=== PATIENT | female | born 1960 | race Caucasian/White ===

== ENCOUNTER 2016-12-06 20:30 | Outpatient (CLI) | payer MEDICAID | END 2016-12-06 20:31 | disposition home or self-care (01) | LOC: SLEEPLAB 20:30 | PROVIDERS: ATTEND Internal Medicine Critical Care Medicine | DX: G47.33 Obstructive sleep apnea (adult) (pediatric) (principal); J44.9 Chronic obstructive pulmonary disease, unspecified; I10 Essential (primary) hypertension; G47.10 Hypersomnia, unspecified; R06.83 Snoring | CPT/HCPCS: 95811 ==

== ENCOUNTER 2017-03-16 16:18 | Inpatient (IN) | payer MEDICAID, OTHER ==
[2017-03-16 16:54] LABS: Actual Bicarbonate (HCO3a) 27.2 mEq/L (22-26); Base Excess (BEa) 1.7 mEq/L (0 (+/-) 2.5); CO2 Tension 46.3 mmHg (35.0-45.0); Calcium, Ionized 1.2 mmol/L (1.12-1.30); Hematocrit-ABG 37.2 % (36.0-47.0); Hemoglobin (Hb) 11.6 g/dL (12.0-16.0); O2 Tension (PaO2) 69.5 mmHg (80.0-100.0); pH, Arterial 7.39 (7.35-7.45)
[2017-03-16] MEDS ORDERED: Water For Inject, Bacteriostat 30 ML ONE (16:58)
[2017-03-16] MEDS ORDERED: methylPREDNISolone Sod Succ/PF 125 MG/2 ML VIAL ONE (16:59)
[2017-03-16 17:07] LABS: #Basophils 0.1 thou/uL (0.0-0.2); #Lymphocytes 0.9 thou/uL (1.20-3.40); #Monocytes 0.7 thou/uL (0.11-0.59); #Neutrophils 7.6 thou/uL (1.40-6.50); %Basophils 0.9 % (0.0-1.0); %Eosinophils 0.3 % (0.0-10.0); %Lymphocytes 9.7 % (21.0-51.0); %Monocytes 7.9 % (0.0-10.0); %Neutrophils 81.1 % (42.0-75.0); Hemoglobin 12.7 g/dL (12.0-16.0); Mean Corpuscular Hemoglobin 29.2 pg (27.0-31.0); Mean Corpuscular Volume 91.3 fl (81.0-99.0); Mean Platelet Volume 7.6 fL (7.4-10.4); Platelet Count 155 thou/uL (130-400); RBC Distribution Width 15.6 % (11.5-14.5); Red Blood Cell (RBC) Count 4.35 mill/uL (4.20-5.40); White Blood Cell (WBC) Count 9.3 thou/uL (4.8-10.8)
[2017-03-16] MEDS ORDERED: Azithromycin 500 MG in Sodium Chloride 0.9% 250 ML 250 ML IVPB ONE (17:15)
[2017-03-16] MEDS ORDERED: cefTRIAXone\\ROCEPHIN 2 GM in Sodium Chloride 0.9% 100 ML IVPB ONE (17:15)
[2017-03-16 17:28] LABS: ALT (SGPT) 7 U/L (8-55); AST (SGOT) 14 U/L (5-34); Albumin 4.2 g/dL (3.5-5.0); Alkaline Phosphatase 104 U/L (40-150); Anion Gap 16 mmol/L (10-20); BUN (Urea Nitrogen) 14 mg/dL (9.8-20.1); Bilirubin, Total 0.9 mg/dL (0.2-1.2); Calc. Creatinine Clearance 0 mL/min (70-130); Calcium 9.8 mg/dL (7.8-10.44); Carbon Dioxide 27 mmol/L (22-29); Chloride 99 mmol/L (98-107); Estimated GFR-MDRD 55; Globulin 3.1 g/dL (2.4-3.5); Glucose 146 mg/dL (70-105); Magnesium 1.4 mg/dL (1.6-2.6); Potassium 3.8 mmol/L (3.5-5.1); Protein, Total 7.3 g/dL (6.0-8.3); Sodium 138 mmol/L (136-145)
[2017-03-16 17:29] LABS: Troponin I Less than 0.010 ng/mL (< 0.028)
[2017-03-16 17:54] LABS: ALV-art Gradient 126.725 (0-20); Analyzer IN Cardio ER; Puncture Site LRA
[2017-03-16] MEDS ORDERED: Mag-Al 1200 mg/1200 mg/30 ML UDCUP PO PRN (18:12)
[2017-03-16] MEDS ORDERED: Dextrose 5% in Water 1,000 ML IV PRN (18:12)
[2017-03-16] MEDS ORDERED: Dextrose 50% Abboject 50 ML SYRINGE SLOW IVP PRN (18:12)
[2017-03-16] MEDS ORDERED: Guaifenesin DM 100-10/5 ML UDCUP PO PRN (18:12)
[2017-03-16] MEDS ORDERED: Acetaminophen 325 MG TAB PO PRN (18:12)
[2017-03-16] MEDS ORDERED: Senokot 8.6 MG TAB PO PRN (18:12)
[2017-03-16] MEDS ORDERED: Benzonatate 100 MG CAP PO PRN (18:12)
[2017-03-16 18:26] LABS: Bilirubin Negative (Negative); Blood, Urine Large (Negative); Clarity CLOUDY (Clear); Glucose, Urine (Dipstick) Negative (Negative); Leukocyte Moderate (Negative); Nitrite Positive (Negative); Protein, Urine (Dipstick) 30 mg/dL (Neg-Trace); pH, Urine 5.5 (5.0-9.0)
[2017-03-16 18:28] LABS: Bacteria/HPF 4+ HPF (None Seen); RBC/HPF GREATER THAN 50-TNTC HPF (0-3); Squamous Epithelial 0-3 HPF (0-3); WBC/HPF 21-50 HPF (0-3); Yeast-AUWi Flag 13.8 (0-25.0)
[2017-03-16] MEDS ORDERED: Acetaminophen 650 MG Suppository ONE (18:37)
[2017-03-16 18:45] LABS: Pathc Cast-AUWi Flag 5.14 (0-2.49)
[2017-03-16 18:47] LABS: Hyaline Casts/LPF NONE SEEN LPF (0-3 Hyaline); Other Casts/LPF None Seen LPF (0-3 Hyaline)
--- NOTE | 2017-03-16 19:13 | HP ---
REASON FOR ADMISSION: Acute respiratory failure, acute chronic obstructive pulmonary disease exacerbation, mild congestive heart failure exacerbation. HISTORY OF PRESENTING ILLNESS: The patient gives history of having [employer] party in the outdoors. She was exposed to cold on this and from then on has not been feeling good. She continues to smoke 2 packs a day. She has had history of CABG done in 09/[address] [facility] and also has COPD with obstructive sleep apnea. The patient states on a good day she barely is able to do all her activities of daily living at home. She states she is disabled. Has been coughing with expectoration of yellow sputum. Does not complain of any chest pain, palpitations or PND. The patient is currently orthopneic. Her saturations were 50% on room air and had to be put on nonrebreather by EMS to bring her here. On arrival here, she was placed on BiPAP and currently the saturations are 92%. PAST MEDICAL AND SURGICAL HISTORY: History of CABG done in 2015, diabetes mellitus type 2, dyslipidemia, x2, obstructive sleep apnea on CPAP, hypertension, tobacco abuse, tonsillectomy. CURRENT MEDICATIONS: Takes Lipitor 20 mg p.o. daily, Lasix 40 mg p.o. daily, metformin 1 g p.o. twice daily, lisinopril 2.5 mg p.o. daily, gabapentin 600 mg p.o. daily, aspirin 81 mg p.o. daily, Ventolin and Dulera inhalers. ALLERGIES: CODEINE. PERSONAL HISTORY: Smokes 2 packs a day. Does not abuse alcohol or drugs. Lives with her ex-. FAMILY HISTORY: The patient is adopted. She does not know much about her biological parents, although she knows that they are . CODE STATUS: FULL. Power of ip technology transactions attorney is her daughter, Ms. Krueger. REVIEW OF SYSTEMS: The following complete review of systems was negative, unless otherwise mentioned in the HPI or below: Constitutional: Weight loss or gain, ability to conduct usual activities. Skin: Rash, itching. Eyes: Double vision, pain. ENT/Mouth: Nose bleeding, neck stiffness, pain, tenderness. Cardiovascular: Palpitations, dyspnea on exertion, orthopnea. Respiratory: Shortness of breath, wheezing, cough, hemoptysis, fever or night sweats. Gastrointestinal: Poor appetite, abdominal pain, heartburn, nausea, vomiting, constipation, or diarrhea. Genitourinary: Urgency, frequency, dysuria, nocturia. Musculoskeletal: Pain, swelling. Neurologic/Psychiatric: Anxiety, depression. Allergy/Immunologic: Skin rash, bleeding tendency. PHYSICAL EXAMINATION: GENERAL: The patient is a 56-year-old female who is currently on BiPAP and is feeling comfortable on it. VITAL SIGNS: Blood pressure 110/62, pulse 130 per minute, respiratory rate 28 per minute, temperature 101.8 degrees Fahrenheit on arrival, saturating 94% on nonrebreather, 50% on room air and currently 92% on BiPAP. NECK: Supple. There is mild elevation in JVD. HEENT: Eyes, extraocular muscles intact. Pupils reacting to light. Oral cavity, mucous membranes are dry. No exudates, but there is congestion in the posterior pharyngeal wall. CARDIOVASCULAR SYSTEM: S1, S2 heard. Tachycardic, no murmur. RESPIRATORY SYSTEM: Air entry 1+ bilateral. Scattered wheezes plus bilateral. ABDOMEN: Soft, bowel sounds heard. No tenderness, rigidity or guarding. EXTREMITIES: No peripheral edema or calf tenderness. VASCULAR SYSTEM: Peripheral pulses 1+ bilateral. No ischemic ulcerations or gangrene. CENTRAL NERVOUS SYSTEM: No gross focal deficits seen. The patient is alert, awake, oriented well. PSYCHIATRIC: The patient's mood is euthymic. No hallucinations or delusions. LABORATORY AND X-RAY FINDINGS: Influenza nasal swab A and B antigens are negative. Chest x-ray by my review shows pulmonary vascular congestion with cardiomegaly. BNP is 214. First set of cardiac enzymes are negative. Glucose 146. BUN 14, creatinine 1.0, lactic acid is 2.9. Liver enzymes are within normal limits. Albumin is 4.2, sodium 138. ABG done shows a pH of 7.39, PCO2 of 46, pO2 of 69. White count 9, H and H 12 and 39, platelet count 155 with 81 % neutrophils, MCV is 91. CLINICAL IMPRESSION AND PLAN: The patient will be admitted to [facility] for acute respiratory failure, acute chronic obstructive pulmonary disease exacerbation, mild congestive heart failure exacerbation. She is currently saturating 92%-93 % on BiPAP and will continue the same. Her ABG looks better than her clinical situation. She has gotten a dose of Zithromax and ceftriaxone in the ER. She will be on Solu-Medrol 40 mg IV q.6 hourly along with empiric Levaquin and DuoNeb. We will consult Pulmonology, Dr. Gonzalez who is concrete layer. We will also continue her on Lasix 40 mg twice daily. Echo with 2D Doppler will be obtained for left ventricular function. The patient has known history of coronary artery bypass grafting, chronic obstructive pulmonary disease and obstructive sleep apnea and continues to smoke almost 2 packs a day. She is also functionally very limited at baseline. We will continue her on aspirin, Lipitor , metformin, and K-Dur as before. We will continue to closely monitor her for any hemodynamic compromise. TAZ
--- NOTE | 2017-03-16 19:18 | RAD ---
AP CHEST: Indication: Difficulty breathing. Comparison: 08-23-16, 11-25-16 FINDINGS: There is stable cardiomegaly. Midline sternotomy changes are similar. The fractured sternotomy wire o n the inferior aspect of the sternal body is stable. Pulmonary vasculature are within normal limits. No airspace consolidation, pleural effusion, or pneumothorax is evident. No acute osseous abnormality is evident. IMPRESSION: No acute cardiopulmonary abnormality. POS: [facility]
[2017-03-16 22:05] LABS: Actual Bicarbonate (HCO3a) 26.8 mEq/L (22-26); Base Excess (BEa) 0.2 mEq/L (0 (+/-) 2.5); CO2 Tension 52.4 mmHg (35.0-45.0); Calcium, Ionized 1.2 mmol/L (1.12-1.30); Hematocrit-ABG 34.7 % (36.0-47.0); Hemoglobin (Hb) 10.8 g/dL (12.0-16.0); O2 Tension (PaO2) 73.5 mmHg (80.0-100.0); pH, Arterial 7.33 (7.35-7.45)
[2017-03-16 22:07] LABS: Analyzer IN Cardio ER; Puncture Site RR
[2017-03-16 22:16] LABS: Lactic Acid 1.1 mmol/L (0.5-2.2)
[2017-03-16] MEDS: Atorvastatin Calcium 20 MG TAB PO SCH (23:27)
[2017-03-16] MEDS: Furosemide 40 MG TAB PO SCH (23:28)
[2017-03-16 23:44] VITALS: BMI 36.8
[2017-03-17] MEDS: HumaLOG 300 UNITS/3 ML VIAL SC PRN ×2 (05:31→12:03)
[2017-03-17 05:54] LABS: #Lymphocytes 0.7 thou/uL (1.20-3.40); #Monocytes 0.2 thou/uL (0.11-0.59); #Neutrophils 6.7 thou/uL (1.40-6.50); %Basophils 0.1 % (0.0-1.0); %Lymphocytes 9.6 % (21.0-51.0); %Monocytes 2.8 % (0.0-10.0); %Neutrophils 87.5 % (42.0-75.0); Hemoglobin 12.3 g/dL (12.0-16.0); Mean Corpuscular HGB CONC 31.5 g/dL (32.0-36.0); Mean Corpuscular Hemoglobin 29.1 pg (27.0-31.0); Mean Corpuscular Volume 92.4 fl (81.0-99.0); Mean Platelet Volume 8.1 fL (7.4-10.4); Platelet Count 134 thou/uL (130-400); RBC Distribution Width 15.5 % (11.5-14.5); Red Blood Cell (RBC) Count 4.24 mill/uL (4.20-5.40); White Blood Cell (WBC) Count 7.7 thou/uL (4.8-10.8)
[2017-03-17 06:13] LABS: Anion Gap 13 mmol/L (10-20); BUN (Urea Nitrogen) 18 mg/dL (9.8-20.1); Calc. Creatinine Clearance 102 mL/min (70-130); Calcium 9.4 mg/dL (7.8-10.44); Carbon Dioxide 28 mmol/L (22-29); Chloride 102 mmol/L (98-107); Estimated GFR-MDRD 62; Glucose 187 mg/dL (70-105); Potassium 4.2 mmol/L (3.5-5.1); Sodium 139 mmol/L (136-145)
[2017-03-17] MEDS: Enoxaparin Sodium 40 MG/0.4 ML SYRINGE SC SCH (08:36)
[2017-03-17] MEDS: metFORMIN 500 MG TAB PO SCH ×2 (08:36→17:12)
[2017-03-17] MEDS: Aspirin 81 mg Enteric Coated Tablet PO SCH (08:36)
[2017-03-17] MEDS: Furosemide 40 MG TAB PO SCH ×2 (08:37→20:34)
[2017-03-17] MEDS: Potassium Chloride 20 MEQ TAB PO SCH (08:37)
[2017-03-17] MEDS: Lisinopril 2.5 MG TAB PO SCH (08:37)
[2017-03-17] MEDS ORDERED: predniSONE 20 MG TAB PO SCH (12:15)
--- NOTE | 2017-03-17 12:50 | PDOC.PN ---
- Subjective Encounter Start Date: 03/17/17 Encounter Start Time: 11:40 Subjective: no sob, feels better - Objective Resuscitation Status: Resuscitation Status FULL:Full Resuscitation MAR Reviewed: Yes Vital Signs & Weight: Vital Signs (12 hours) Temp Pulse Resp BP Pulse Ox 03/17/17 12:39 97.6 F 94 22 H 100/55 L 100 03/17/17 08:37 92 03/17/17 08:33 98 03/17/17 08:04 92 24 H 99 03/17/17 08:00 97.4 F L 92 20 105/63 100 03/17/17 04:00 98.0 F 94 27 H 96/55 L 97 03/17/17 02:00 104 H 34 H 94/53 L 99 Weight Weight 208 lb 1 oz I&O: 03/16/17 03/17/17 03/18/17 06:59 06:59 06:59 Intake Total 2310 Output Total 800 Balance 1510 Result Diagrams: 03/17/17 04:38 03/17/17 04:38 Additional Labs: Accuchecks 03/17/17 03/17/17 11:29 05:31 POC Glucose 170 H 183 H Phys Exam - Physical Examination HEENT: PERRLA, moist MMs Neck: no JVD, supple Respiratory: no wheezing, no rales Cardiovascular: RRR, no significant murmur Gastrointestinal: soft, non-tender, positive bowel sounds Musculoskeletal: no edema, pulses present Neurological: non-focal, moves all 4 limbs Psychiatric: A&O x 3 Dx/Plan (1) Acute respiratory failure with hypoxia and hypercapnia Code(s): J96.01 - ACUTE RESPIRATORY FAILURE WITH HYPOXIA; J96.02 - ACUTE RESPIRATORY FAILURE WITH HYPERCAPNIA Status: Resolved (2) CAD (coronary artery disease) Code(s): I25.10 - ATHSCL HEART DISEASE OF [place] CORONARY ARTERY W/O ANG PCTRS Status: Chronic Qualifiers: Coronary Disease-Associated Artery/Lesion type: bypass graft [place] vs. transplanted heart: [place] heart Associated angina: without angina Qualified Code(s): I25.810 - Atherosclerosis of coronary artery bypass graft(s) without angina pectoris (3) DM2 (diabetes mellitus, type 2) Status: Chronic Qualifiers: Diabetes mellitus complication status: with unspecified complications Diabetes mellitus intermediate manager insulin use: without intermediate manager use Qualified Code( s): E11.8 - Type 2 diabetes mellitus with unspecified complications (4) HTN (hypertension) Code(s): I10 - ESSENTIAL (PRIMARY) HYPERTENSION Status: Chronic Qualifiers: Hypertension type: essential hypertension (5) Acute exacerbation of chronic obstructive pulmonary disease (COPD) Code(s): J44.1 - CHRONIC OBSTRUCTIVE PULMONARY DISEASE W (ACUTE) EXACERBATION Status: Acute (6) TATIANA (obstructive sleep apnea) Code(s): G47.33 - OBSTRUCTIVE SLEEP APNEA (ADULT) (PEDIATRIC) Status: Chronic Comment: CPAP hs - Plan is off bipap, uses cpap at night -: nebs, lasix, steroids, empiric levaquin -: tx to med floor -: counselled reg smoking cessation -: continue asp, lisinopril and lipitor * . Review of Systems - Medications/Allergies Allergies/Adverse Reactions: Allergies Allergy/AdvReac Type Severity Reaction Status Date / Time codeine Allergy Verified 03/16/17 22:54 Medications: Current Medications Acetaminophen (Tylenol) 650 mg PO Q4H PRN PRN Reason: Headache/Fever or Pain Al Hydroxide/Mg Hydroxide (Maalox) 30 ml PO Q6H PRN PRN Reason: Heartburn or Indigestion Albuterol/Ipratropium (Duoneb) 3 ml NEB [id number] [facility] Last Admin: 03/17/17 08:04 Dose: 3 ml Aspirin (Ecotrin) 81 mg PO DAILY [facility] Last Admin: 03/17/17 08:36 Dose: 81 mg Atorvastatin Calcium (Lipitor) 20 mg PO HS [facility] Last Admin: 03/16/17 23:27 Dose: 20 mg Benzonatate (Tessalon) 100 mg PO Q4H PRN PRN Reason: Cough Dextrose/Water (Dextrose 50%) 25 gm SLOW IVP PRN PRN PRN Reason: Hypoglycemia Enoxaparin Sodium (Lovenox) 40 mg SC 0900 [facility] Last Admin: 03/17/17 08:36 Dose: 40 mg Furosemide (Lasix) 40 mg PO BID [facility] Last Admin: 03/17/17 08:37 Dose: 40 mg Glucagon (Glucagon) 1 mg IM PRN PRN PRN Reason: Hypoglycemia Guaifenesin/Dextromethorphan (Robitussin Dm) 15 ml PO Q4H PRN PRN Reason: Cough Dextrose/Water (D5w) 1,000 mls @ 0 mls/hr IV .Q0M PRN; As Directed PRN Reason: Hypoglycemia Levofloxacin 750 mg/ Device 150 mls @ 100 mls/hr IVPB Q24HR [facility] Last Admin: 03/16/17 23:27 Dose: 150 mls Insulin Human Lispro (Humalog) 0 units SC .MODERATE SLIDING SC PRN PRN Reason: Moderate Correctional Scale Last Admin: 03/17/17 12:03 Dose: 2 unit Lisinopril (Zestril) 2.5 mg PO DAILY [facility] Last Admin: 03/17/17 08:37 Dose: 2.5 mg Metformin HCl (Glucophage) 1,000 mg PO BID-WM [facility] Last Admin: 03/17/17 08:36 Dose: 1,000 mg Potassium Chloride (K-Dur) 20 meq PO DAILY [facility] Last Admin: 03/17/17 08:37 Dose: 20 meq Prednisone (Prednisone) 10 mg PO NOW [facility] Stop: 03/17/17 14:15 Prednisone (Prednisone) 10 mg PO QAM-[facility] Senna (Senokot) 2 tab PO HSPRN PRN PRN Reason: Constipation
[2017-03-17] MEDS: Gabapentin 300 MG CAP PO SCH (20:34)
[2017-03-17] MEDS: Atorvastatin Calcium 20 MG TAB PO SCH (20:34)
[2017-03-17] MEDS: Benzonatate 100 MG CAP PO SCH (20:34)
[2017-03-18] MEDS: Potassium Chloride 20 MEQ TAB PO SCH (08:12)
[2017-03-18] MEDS: Furosemide 40 MG TAB PO SCH ×2 (08:12→20:05)
[2017-03-18] MEDS: Enoxaparin Sodium 40 MG/0.4 ML SYRINGE SC SCH (08:12)
[2017-03-18] MEDS: Aspirin 81 mg Enteric Coated Tablet PO SCH (08:13)
[2017-03-18] MEDS: Gabapentin 300 MG CAP PO SCH ×2 (08:13→20:05)
[2017-03-18] MEDS: predniSONE 20 MG TAB PO SCH (08:13)
[2017-03-18] MEDS: metFORMIN 500 MG TAB PO SCH ×2 (08:13→16:32)
[2017-03-18] MEDS: Lisinopril 2.5 MG TAB PO SCH (08:15)
--- NOTE | 2017-03-18 15:10 | PQF ---
DATE: 03-18-17 ATTN: DR. LUIGI RUBALCAVA Please exercise your independent, professional judgment in responding to the clarification form. Clinical indicators are provided on the bottom of this form for your review Please check appropriate box(s): [ ] UTI [ ] Contaminated urine specimen without UTI [ ] Other diagnosis [ ] Unable to determine In addition, please specify: Present on Admission (POA): [ ] Yes [ ] No [ ] Unable to determine For continuity of documentation, please document condition throughout progress notes and discharge summary. Thank You. CLINICAL INDICATORS - SIGNS / SYMPTOMS / LABS ER DIAGNOSIS: SEPSIS, RESPIRATORY FAILURE WITH HYPOXIA, UTI URINE 03-16-17: URINE PROTEIN 30 H URINE BLOOD LARGE H URINE NITRITE POSITIVE H UR LEUKOCYTE ESTERASE MODERATE H URINE RBC GREATER THAN 50-TNCT H URINE WBC 21-50 H URINE BACTERIA 4+ H RISK FACTORS: H&P: HX OF CABG, COPD, DM, HTN TREATMENT: (03-16-17) LEVAQUIN (ER) IVF, AZITHROMYCIN, ROCEPHIN (This form is maintained as a part of the permanent medical record) 2014 [employer] All Rights Reserved [email or web address] Office: [phone] [facility] H[facility]PITALSerj[facility]
[2017-03-18] MEDS: Benzonatate 100 MG CAP PO SCH (20:06)
[2017-03-18] MEDS: Atorvastatin Calcium 20 MG TAB PO SCH (20:06)
--- NOTE | 2017-03-18 21:25 | PDOC.PN ---
- Subjective Encounter Start Date: 03/18/17 Encounter Start Time: 12:30 Patient seen and examined. SOB +. No overnight events - Objective Resuscitation Status: Resuscitation Status FULL:Full Resuscitation MAR Reviewed: Yes Vital Signs & Weight: Vital Signs (12 hours) Temp Pulse Resp BP BP Pulse Ox 03/18/17 19:51 103 H 22 H 93 L 03/18/17 15:30 98.2 F 104 H 20 93 L 03/18/17 14:45 98.2 F 104 H 20 114/65 93 L 03/18/17 12:00 97.7 F 106 H 20 108/57 L 96 Weight Weight 206 lb 8 oz I&O: 03/17/17 03/18/17 03/19/17 06:59 06:59 06:59 Intake Total 2310 1790 480 Output Total 800 2050 Balance 1510 -260 480 Result Diagrams: 03/19/17 10:24 03/17/17 04:38 Additional Labs: Accuchecks 03/18/17 03/18/17 03/18/17 20:03 15:53 11:39 POC Glucose 111 H 139 H 121 H 03/18/17 06:24 POC Glucose 116 H EKG Reviewed by me: Yes (Tele SR) Phys Exam - Physical Examination Constitutional: NAD Respiratory: no rales Scat wheezing/rhonchi Cardiovascular: RRR Gastrointestinal: soft, non-tender, positive bowel sounds Neurological: moves all 4 limbs Dx/Plan - Plan respiratory therapy, DVT proph w/lovenox, DVT proph w/SCDs IMPRESSION: 1. Acute hypoxic/hypercapnic resp failure/COPD exacerbation 2. Sepsis due to Acute Bronchitis/UTI 3. UTI - Enterobacter 4. Obesity BMI 36 5. DM2/HTN/CAD/TATIANA/Tobacco dep/Obesity hypoventilation PLAN: * Cont Nebs/Atbx/low dose steroids * Cont current meds as below * Pulm following * Cont to monitor * AM labs Microbiology 03/16/17 17:45 Urine Straight Catheter Urine Culture - Final Enterobacter cloacae complex Review of Systems - Review of Systems Cardiovascular: negative: chest pain, palpitations, orthopnea, paroxysmal nocturnal dyspnea, edema, light headedness Gastrointestinal: negative: Nausea, Vomiting, Abdominal Pain, Diarrhea, Constipation, Melena, Hematochezia - Medications/Allergies Allergies/Adverse Reactions: Allergies Allergy/AdvReac Type Severity Reaction Status Date / Time codeine Allergy Verified 03/16/17 22:54 Medications: Current Medications Acetaminophen (Tylenol) 650 mg PO Q4H PRN PRN Reason: Headache/Fever or Pain Al Hydroxide/Mg Hydroxide (Maalox) 30 ml PO Q6H PRN PRN Reason: Heartburn or Indigestion Albuterol/Ipratropium (Duoneb) 3 ml NEB [id number] [facility] Last Admin: 03/18/17 19:51 Dose: 3 ml Aspirin (Ecotrin) 81 mg PO DAILY [facility] Last Admin: 03/18/17 08:13 Dose: 81 mg Atorvastatin Calcium (Lipitor) 20 mg PO HS [facility] Last Admin: 03/18/17 20:06 Dose: 20 mg Benzonatate (Tessalon) 100 mg PO Q4H PRN PRN Reason: Cough Benzonatate (Tessalon) 100 mg PO HS [facility] Last Admin: 03/18/17 20:06 Dose: 100 mg Dextrose/Water (Dextrose 50%) 25 gm SLOW IVP PRN PRN PRN Reason: Hypoglycemia Enoxaparin Sodium (Lovenox) 40 mg SC 0900 [facility] Last Admin: 03/18/17 08:12 Dose: 40 mg Furosemide (Lasix) 40 mg PO BID [facility] Last Admin: 03/18/17 20:05 Dose: 40 mg Gabapentin (Neurontin) 600 mg PO BID [facility] Last Admin: 03/18/17 20:05 Dose: 600 mg Glucagon (Glucagon) 1 mg IM PRN PRN PRN Reason: Hypoglycemia Guaifenesin/Dextromethorphan (Robitussin Dm) 15 ml PO Q4H PRN PRN Reason: Cough Dextrose/Water (D5w) 1,000 mls @ 0 mls/hr IV .Q0M PRN; As Directed PRN Reason: Hypoglycemia Levofloxacin 750 mg/ Device 150 mls @ 100 mls/hr IVPB Q24HR [facility] Last Admin: 03/18/17 20:05 Dose: 150 mls Insulin Human Lispro (Humalog) 0 units SC .MODERATE SLIDING SC PRN PRN Reason: Moderate Correctional Scale Last Admin: 03/17/17 12:03 Dose: 2 unit Lisinopril (Zestril) 2.5 mg PO DAILY [facility] Last Admin: 03/18/17 08:15 Dose: Not Given Metformin HCl (Glucophage) 1,000 mg PO BID-[facility] Last Admin: 03/18/17 16:32 Dose: 1,000 mg Potassium Chloride (K-Dur) 20 meq PO DAILY [facility] Last Admin: 03/18/17 08:12 Dose: 20 meq Prednisone (Prednisone) 10 mg PO QAM-[facility] Last Admin: 03/18/17 08:13 Dose: 10 mg Senna (Senokot) 2 tab PO HSPRN PRN PRN Reason: Constipation
[2017-03-19] MEDS: Lisinopril 2.5 MG TAB PO SCH (08:56)
[2017-03-19] MEDS: Gabapentin 300 MG CAP PO SCH ×2 (08:56→20:59)
[2017-03-19] MEDS: predniSONE 20 MG TAB PO SCH (08:57)
[2017-03-19] MEDS: metFORMIN 500 MG TAB PO SCH ×2 (08:58→17:23)
[2017-03-19] MEDS: Aspirin 81 mg Enteric Coated Tablet PO SCH (08:58)
[2017-03-19] MEDS: Furosemide 40 MG TAB PO SCH ×2 (08:58→17:23)
[2017-03-19] MEDS: Potassium Chloride 20 MEQ TAB PO SCH (08:58)
[2017-03-19] MEDS: Enoxaparin Sodium 40 MG/0.4 ML SYRINGE SC SCH (09:01)
[2017-03-19 10:36] LABS: #Lymphocytes 1.3 thou/uL (1.20-3.40); #Monocytes 0.5 thou/uL (0.11-0.59); #Neutrophils 4.8 thou/uL (1.40-6.50); %Basophils 0.1 % (0.0-1.0); %Eosinophils 0.5 % (0.0-10.0); %Lymphocytes 19.1 % (21.0-51.0); %Neutrophils 72.3 % (42.0-75.0); Hemoglobin 11.7 g/dL (12.0-16.0); Mean Corpuscular HGB CONC 32.1 g/dL (32.0-36.0); Mean Corpuscular Hemoglobin 29.4 pg (27.0-31.0); Mean Corpuscular Volume 91.8 fl (81.0-99.0); Platelet Count 137 thou/uL (130-400); RBC Distribution Width 15.1 % (11.5-14.5); Red Blood Cell (RBC) Count 3.97 mill/uL (4.20-5.40); White Blood Cell (WBC) Count 6.7 thou/uL (4.8-10.8)
[2017-03-19 11:01] LABS: ALT (SGPT) 8 U/L (8-55); AST (SGOT) 13 U/L (5-34); Albumin 3.7 g/dL (3.5-5.0); Alkaline Phosphatase 76 U/L (40-150); Anion Gap 16 mmol/L (10-20); BUN (Urea Nitrogen) 23 mg/dL (9.8-20.1); Bilirubin, Total 0.5 mg/dL (0.2-1.2); Calc. Creatinine Clearance 101 mL/min (70-130); Calcium 9.4 mg/dL (7.8-10.44); Carbon Dioxide 25 mmol/L (22-29); Chloride 104 mmol/L (98-107); Estimated GFR-MDRD 62; Globulin 2.8 g/dL (2.4-3.5); Glucose 97 mg/dL (70-105); Magnesium 1.8 mg/dL (1.6-2.6); Phosphorus 2.4 mg/dL (2.3-4.7); Potassium 4.7 mmol/L (3.5-5.1); Protein, Total 6.5 g/dL (6.0-8.3); Sodium 140 mmol/L (136-145)
--- NOTE | 2017-03-19 17:35 | PDOC.PN ---
- Subjective Encounter Start Date: 03/19/17 Encounter Start Time: 15:30 Patient seen and examined. SOB improving. No overnight events - Objective Resuscitation Status: Resuscitation Status FULL:Full Resuscitation MAR Reviewed: Yes Vital Signs & Weight: Vital Signs (12 hours) Temp Pulse Resp BP Pulse Ox 03/19/17 12:12 98.4 F 107 H 20 112/73 92 L 03/19/17 08:00 97.7 F 105 H 20 119/69 93 L 03/19/17 07:22 99 24 H 96 Weight Weight 206 lb 8 oz I&O: 03/18/17 03/19/17 03/20/17 06:59 06:59 06:59 Intake Total 1790 480 Output Total 2050 Balance -260 480 Result Diagrams: 03/19/17 10:24 03/19/17 10:24 Additional Labs: Accuchecks 03/19/17 03/19/17 03/19/17 16:17 11:29 04:18 POC Glucose 137 H 129 H 96 03/18/17 20:03 POC Glucose 111 H Phys Exam - Physical Examination Constitutional: NAD Respiratory: no wheezing, no rales, no rhonchi Cardiovascular: RRR, no rub Gastrointestinal: soft, non-tender, positive bowel sounds Neurological: moves all 4 limbs Dx/Plan - Plan DVT proph w/SCDs IMPRESSION: 1. Acute hypoxic/hypercapnic resp failure/COPD exacerbation 2. Sepsis due to Acute Bronchitis/UTI 3. UTI - Enterobacter 4. Obesity BMI 36/DM2/HTN/CAD/TATIANA/Tobacco dep/Obesity hypoventilation PLAN: * Pulm following * Cont current meds as below * Cont Nebs/Atbx/low dose steroids * DC PO Potassium chloride * Cont to monitor * DC Lovenox per patient request Review of Systems - Review of Systems Cardiovascular: negative: chest pain, palpitations, orthopnea, paroxysmal nocturnal dyspnea, edema, light headedness Gastrointestinal: negative: Nausea, Vomiting, Abdominal Pain, Diarrhea, Constipation, Melena, Hematochezia - Medications/Allergies Allergies/Adverse Reactions: Allergies Allergy/AdvReac Type Severity Reaction Status Date / Time codeine Allergy Verified 03/16/17 22:54 Medications: Current Medications Acetaminophen (Tylenol) 650 mg PO Q4H PRN PRN Reason: Headache/Fever or Pain Al Hydroxide/Mg Hydroxide (Maalox) 30 ml PO Q6H PRN PRN Reason: Heartburn or Indigestion Albuterol/Ipratropium (Duoneb) 3 ml NEB [id number] [facility] Last Admin: 03/19/17 16:30 Dose: Not Given Aspirin (Ecotrin) 81 mg PO DAILY [facility] Last Admin: 03/19/17 08:58 Dose: 81 mg Atorvastatin Calcium (Lipitor) 20 mg PO HS [facility] Last Admin: 03/18/17 20:06 Dose: 20 mg Benzonatate (Tessalon) 100 mg PO Q4H PRN PRN Reason: Cough Benzonatate (Tessalon) 100 mg PO HS [facility] Last Admin: 03/18/17 20:06 Dose: 100 mg Dextrose/Water (Dextrose 50%) 25 gm SLOW IVP PRN PRN PRN Reason: Hypoglycemia Furosemide (Lasix) 40 mg PO 0600,1400 [facility] Last Admin: 03/19/17 17:23 Dose: Not Given Gabapentin (Neurontin) 600 mg PO BID [facility] Last Admin: 03/19/17 08:56 Dose: 600 mg Glucagon (Glucagon) 1 mg IM PRN PRN PRN Reason: Hypoglycemia Guaifenesin/Dextromethorphan (Robitussin Dm) 15 ml PO Q4H PRN PRN Reason: Cough Dextrose/Water (D5w) 1,000 mls @ 0 mls/hr IV .Q0M PRN; As Directed PRN Reason: Hypoglycemia Levofloxacin 750 mg/ Device 150 mls @ 100 mls/hr IVPB Q24HR [facility] Last Admin: 03/18/17 20:05 Dose: 150 mls Insulin Human Lispro (Humalog) 0 units SC .MODERATE SLIDING SC PRN PRN Reason: Moderate Correctional Scale Last Admin: 03/17/17 12:03 Dose: 2 unit Lisinopril (Zestril) 2.5 mg PO DAILY [facility] Last Admin: 03/19/17 08:56 Dose: 2.5 mg Metformin HCl (Glucophage) 1,000 mg PO BID-[facility] Last Admin: 03/19/17 17:23 Dose: 1,000 mg Potassium Chloride (K-Dur) 20 meq PO DAILY [facility] Last Admin: 03/19/17 08:58 Dose: 20 meq Prednisone (Prednisone) 10 mg PO QAM-[facility] Last Admin: 03/19/17 08:57 Dose: 10 mg Senna (Senokot) 2 tab PO HSPRN PRN PRN Reason: Constipation
[2017-03-19] MEDS ORDERED: predniSONE 20 MG TAB PO SCH (20:57)
[2017-03-19] MEDS: Atorvastatin Calcium 20 MG TAB PO SCH (20:59)
[2017-03-19] MEDS: Benzonatate 100 MG CAP PO SCH (20:59)
--- NOTE | 2017-03-19 22:04 | CON ---
DATE OF CONSULTATION: 03/19/2017 HISTORY OF PRESENT ILLNESS: Ms. Haas is a very pleasant 56-year-old female that I followed up for chronic obstructive pulmonary disease. She presented on 03/16 with complaints of shortness of breath. I was consulted today the 4th, to stacy romano her. She also has sleep apnea. PAST MEDICAL HISTORY: Remarkable for: 1. Ongoing tobacco use up to over a pack a day. 2. History of coronary artery bypass grafting, last summer. 3. History of sleep apnea. 4. History of diabetes. 5. History of two C-sections. 6. History of lipid disorder. 7. History of tonsillectomy. 8. History of hypertension. MEDICATIONS PRIOR TO ADMISSION: Lipitor, Lasix, metformin, lisinopril, gabapentin, aspirin and Duler a. She takes p.r.n. Ventolin. SOCIAL HISTORY: She is still smoking as mentioned. She does not drink. She does not use drugs. ALLERGIES: She reports allergies to CODEINE. FAMILY HISTORY: There is no known family history since she is adopted. REVIEW OF SYSTEMS: Otherwise 10-point negative. Her only complaints are cough, chest congestion. S ays she is finally starting to feel little better. PHYSICAL EXAMINATION: VITAL SIGNS: She is afebrile, heart rate is 92, respiratory rate is 20, oximetry is 94% on 4 liters and blood pressure 105/66. HEAD AND NECK: Unremarkable. She has no cervical lymphadenopathy. Carotids are symmetrical. LUNGS: Remarkable for faint wheezes. HEART: Regular rhythm. No S3. ABDOMEN: Soft and nontender. EXTREMITIES: Without clubbing, cyanosis or edema. LABORATORY AND IMAGING DATA: Chest radiograph 3 days ago showed cardiomegaly. No pleural effusions or pulmonary edema was seen. White count 6.7, hemoglobin 11.7 and platelets 137,000. Sodium 140, potassium 4.7, chloride 104, bicarb 25, BUN 23 and creatinine 0.94. IMPRESSION: 1. Chronic obstructive pulmonary disease exacerbation with bronchitis. 2. History of coronary artery disease, followed by Cardiology. I believe she was supposed to have a cardiology appointment this week. Cardiology might be notified of her presence in the hospital, so that they can see her since another clinics are fairly full and if she miss that appointment, it may be several months before she gets back in. I reviewed her medications. I would continue with her Lovenox and Criselda Mcadams. I am not sure if she needs Lasix twice a day at this point. She might do well with just once a day Lasix. Her antim icrobial therapy is now p.o. She probably would benefit from more than just 10 mg of prednisone a da y given that this is predominantly a chronic obstructive pulmonary disease exacerbation. I increased her prednisone to 40 mg a day. I will be happy to follow with the other physicians caring for. This is a 50-minute consult, greater than 50% of the time was spent on the unit reviewing records con ferring with staff and reviewing radiographs.
[2017-03-20 05:03] VITALS: TEMP 98.1
[2017-03-20] MEDS: Furosemide 40 MG TAB PO SCH (05:26)
[2017-03-20] MEDS: metFORMIN 500 MG TAB PO SCH (08:13)
[2017-03-20] MEDS: Lisinopril 2.5 MG TAB PO SCH (08:15)
[2017-03-20] MEDS: Aspirin 81 mg Enteric Coated Tablet PO SCH (08:16)
[2017-03-20] MEDS: Gabapentin 300 MG CAP PO SCH (08:16)
[2017-03-20 09:25] VITALS: BP 106/65
--- NOTE | 2017-03-20 13:30 | DIS ---
DATE OF ADMISSION: 03/16/2017 DATE OF DISCHARGE: 03/20/2017 DISCHARGE DISPOSITION: Home. FOLLOWUP: 1. Follow up with primary care physician Dr. Eliane Islas in 1 week. 2. Follow up with primary senior analytical chemist, Dr. Ennis and primary admissions supervisor Dr. Aguilar as sched ed. ALLERGIES: The patient is allergic to CODEINE. INPATIENT COMB MACHINE OPERATOR: Pulmonary, Dr. Ennis. TESTS PENDING AT DISCHARGE: 2D echocardiogram. BRIEF HOSPITAL COURSE: Patient is a 56-year-old female with chronic respiratory failure on home oxyg en, COPD, and coronary artery disease who presented to the emergency room with shortness of breath an d wheezing. Please refer to the history and physical dated 03/16/2017 for further details. The patient was admitted to the hospital with the diagnosis of acute hypoxic and hypercapnic respirat ory failure. ABGs on admission showed pH 7.33 with pCO2 of 52.4 with pO2 of 73.5. A pO2 on previous ABGs showed 69.5. She showed good improvement with noninvasive positive pressure ventilation. She received steroids, antibiotics as well as low dose diuretics with good response. Patient was evaluat ed by Pulmonary, Dr. Ennis. She also underwent echocardiogram which was scheduled as outpatient. e will follow up with Dr. Aguilar next week for stress test. Plan of care was discussed with the p shawn. She stated understanding. Total time coordinating the discharge of this patient was 33 minutes. DISCHARGE MEDICATIONS: Aspirin 81 mg daily, Lipitor 20 mg at bedtime, Tessalon 100 mg daily, Lasix 4 0 mg daily, gabapentin 600 mg twice a day, Levaquin 500 mg daily, lisinopril 2.5 mg daily, metformin 1000 mg b.i.d., Dulera 200/5 two puffs b.i.d., prednisone taper, and albuterol inhaler as needed. DISCHARGE INSTRUCTIONS: Plan of care was discussed with the patient in detail. She stated rosannaan jerry. FINAL DIAGNOSES: 1. Acute hypoxic/hypercapnic respiratory failure secondary to chronic obstructive pulmonary disease exacerbation. 2. Sepsis secondary to acute bronchitis/enterobacter infection. 3. Obesity with body mass index 36. 4. Diabetes mellitus type 2. 5. Hypertension. 6. Coronary artery disease. 7. Obstructive sleep apnea with obesity hypoventilation syndrome. 8. Tobacco dependence.
--- NOTE | 2017-03-20 13:53 | PRG ---
DATE OF SERVICE: 03/20/2017 SUBJECTIVE: Alba Haas did well overnight. She states she wants to go home. She has oxygen ever ything she needs at the house. PHYSICAL EXAMINATION: VITAL SIGNS: She is afebrile, heart rate 95, blood pressure 98/57, respiratory rate 20, oximetry is 94% on 4 liters, blood pressure 106/65. LUNGS: Remarkable for distant breath sounds. HEART: Regular rhythm. ABDOMEN: Soft. IMPRESSION AND PLAN: Chronic obstructive pulmonary disease exacerbation, improved. In my opinion, s he is stable for discharge. She can follow up with me in 2-3 weeks. She should go home with slow st eroid taper, continue her antibiotics and nebulizer treatments and her other home meds.
== END 2017-03-20 12:23 | disposition home or self-care (01) | DRG 871 ==
LOC: ERS 16:18 → IMCU/EMU 17:45 → T4-A 03-18 14:28 → T4-B 03-18 14:46
PROVIDERS: ADMIT Internal Medicine; ATTEND Internal Medicine
PROC: 5A09357 Assistance with Respiratory Ventilation, Less than 24 Consecutive Hours, Continuous Positive Airway Pressure (ICD-10-PCS; principal; 2017-03-16)
DX: A41.89 Other specified sepsis (principal); J96.01 Acute respiratory failure with hypoxia; J96.02 Acute respiratory failure with hypercapnia; J44.1 Chronic obstructive pulmonary disease with (acute) exacerbation; E66.2 Morbid (severe) obesity with alveolar hypoventilation; J44.0 Chronic obstructive pulmonary disease with (acute) lower respiratory infection; N39.0 Urinary tract infection, site not specified; I25.810 Atherosclerosis of coronary artery bypass graft(s) without angina pectoris; I50.9 Heart failure, unspecified; E11.9 Type 2 diabetes mellitus without complications; B96.89 Other specified bacterial agents as the cause of diseases classified elsewhere; E78.5 Hyperlipidemia, unspecified; F17.210 Nicotine dependence, cigarettes, uncomplicated; Z95.1 Presence of aortocoronary bypass graft; G47.33 Obstructive sleep apnea (adult) (pediatric); Z88.5 Allergy status to narcotic agent; Z79.84 Long term (current) use of oral hypoglycemic drugs; Z79.82 Long term (current) use of aspirin; Z79.51 Long term (current) use of inhaled steroids; Z68.36 Body mass index [BMI] 36.0-36.9, adult; J20.8 Acute bronchitis due to other specified organisms; I25.2 Old myocardial infarction; F41.9 Anxiety disorder, unspecified; F32.9 Major depressive disorder, single episode, unspecified; I11.0 Hypertensive heart disease with heart failure
CPT/HCPCS: 36415; 36416; 51701; 71045; 80048; 80053; 81003; 81015; 82553; 82805; 83605; 83735; 83880; 84100; 84484; 85025; 87040; 87070; 87077; 87086; 87186; 87205; 93005; 93306; 93798; 94660; 96361; 96365; 96367; 96375; 99406; A4353; J0456; J0696; J1650; J1956; J2930; J7050; J7506; J7620

== ENCOUNTER 2017-08-31 18:38 | Inpatient (IN) | payer OTHER ==
[~2017-08-31 18:38] MED LIST: ISOVUE-370 76%-LOCM 1 ML ONE
[2017-08-31 19:12] LABS: #Eosinphils 0.2 thou/uL (0.0-0.7); #Lymphocytes 1.4 thou/uL (1.20-3.40); #Monocytes 0.6 thou/uL (0.11-0.59); %Basophils 0.1 % (0.0-1.0); %Eosinophils 2.1 % (0.0-10.0); %Lymphocytes 14.9 % (21.0-51.0); %Monocytes 6.4 % (0.0-10.0); %Neutrophils 76.5 % (42.0-75.0); Hemoglobin 10.7 g/dL (12.0-16.0); Mean Corpuscular HGB CONC 32.2 g/dL (32.0-36.0); Mean Corpuscular Hemoglobin 23.9 pg (27.0-31.0); Mean Platelet Volume 8.5 fL (7.4-10.4); Platelet Count 241 thou/uL (130-400); RBC Distribution Width 19.8 % (11.5-14.5); Red Blood Cell (RBC) Count 4.47 mill/uL (4.20-5.40); White Blood Cell (WBC) Count 9.2 thou/uL (4.8-10.8)
[2017-08-31 19:13] LABS: INR-International Normal Ratio 1.1; PTT 29.4 SEC (22.9-36.1); Prothrombin Time 14.7 SEC (12.0-14.7)
[2017-08-31] MEDS ORDERED: Furosemide 40 MG/4 ML VIAL ONE (19:18)
[2017-08-31 19:28] LABS: ALT (SGPT) Less than 7 U/L (8-55); AST (SGOT) 11 U/L (5-34); Alkaline Phosphatase 151 U/L (40-150); Anion Gap 19 mmol/L (10-20); BUN (Urea Nitrogen) 13 mg/dL (9.8-20.1); Bilirubin, Total 0.7 mg/dL (0.2-1.2); CK (CPK) 51 U/L (29-168); Calc. Creatinine Clearance 0 mL/min (70-130); Calcium 9.1 mg/dL (7.8-10.44); Carbon Dioxide 23 mmol/L (22-29); Chloride 101 mmol/L (98-107); Estimated GFR-MDRD 52; Globulin 2.9 g/dL (2.4-3.5); Glucose 123 mg/dL (70-105); Potassium 4.5 mmol/L (3.5-5.1); Protein, Total 6.9 g/dL (6.0-8.3); Sodium 138 mmol/L (136-145)
[2017-08-31 19:36] LABS: Anisocytosis SLIGHT = 6-15 cells (100X) (0-5/hpf); MDiff Complete? YES; Microcytosis SLIGHT = 6-15 cells (100X) (0-5/hpf); Ovalocytes SLIGHT = 2-5 cells (100X) (0-1/hpf); PLT Morphology Comment Appears Adequate; Polychromasia SLIGHT = 2-3 cells (100X) (0-2/hpf)
[2017-08-31 19:37] LABS: CKMB 0.7 ng/mL (0-6.6); Troponin I Less than 0.010 ng/mL (< 0.028)
[2017-08-31] MEDS ORDERED: Lidocaine 1% (PF) 30 ML VIAL ONE (20:12)
--- NOTE | 2017-08-31 20:53 | CT ---
CTA THORAX WITH CONTRAST CTA ABDOMEN WITH CONTRAST: DATE: 08/31/2017 TIME: 8:02 p.m. (Computed Tomographic Angiography, chest (noncoronary) with contrast material, and image post process ing) (Computed Tomographic Angiography, abdomen with contrast material, and image post processing) HISTORY: A 56-year-old female with dyspnea, back pain and chronic hypertension. Rule out aortic dissection. COMPARISON: Previous CT of the abdomen and pelvis of 08/23/2016 There are no prior chest CTs for comparison. TECHNIQUE: IV injection of iodinated contrast: Isovue. Arterial phase bolus chasing technique. Scan acquisition from top of top of aortic arch to iliac crests. 3D MIP reconstructions. FINDINGS: Atherosclerotic calcification of the abdominal aorta without aneurysm or dissection. No aneurysm or dissection of the thoracic aorta. There are several mildly enlarged mediastinal lymph nodes, both on the right and left. On the left, this involves the prevascular space, measuring on the order of 1 c m or slightly greater in size each. Subcarinal lymph nodes are also mildly to moderately enlarged. The trachea and the main bronchi are patent and clear. No pleural effusion. Mediastinal lipomatosis . Bilateral paracardial fat pads. Mild subsegmental atelectasis or scar at the lung bases, and also abutting the left and right cardiac borders. No consolidation or pulmonary edema. No pneumothorax. Sternotomy wires. Diffuse skin thickening of the right breast. Edema in the soft tissues surrounding the abdominal wall, circumferentially. A large volume of ascit es, greater than on the previous CT. Several small calcified gallstones within a nondistended gallbl adder. Hepatic margins appear nodular. The spleen is approximately 6 x 15 x 17.5 cm. No hydronephr osis. No adrenal mass. Multiple mildly enlarged mesenteric, retroperitoneal, and octavio hepatis lymp h nodes. No pancreatic mass or acute pancreatitis. No small bowel dilation. Calcification of the l eft main, the LAD, and the RCA. IMPRESSION: 1. No aortic dissection or aneurysm. 2. Large volume of ascites. 3. cirrhosis. 4. Mild splenomegaly. 5. Cholelithiasis. 6. Anasarca. 7. Coronary atherosclerosis. 8. Unilateral skin thickening of the right breast. Possibilities include right mastitis versus righ t breast inflammatory carcinoma. viola[] POS: AMAURY
[2017-08-31 20:55] LABS: Bilirubin Negative (Negative); Blood, Urine Negative (Negative); Clarity CLEAR (Clear); Glucose, Urine (Dipstick) Negative (Negative); Leukocyte Trace (Negative); Nitrite Negative (Negative); Protein, Urine (Dipstick) Negative (Neg-Trace); Specific Gravity, Urine 1.011 (1.002-1.036); Urobilinogen 0.2 mg/dL (0.2-1.0); pH, Urine 6.5 (5.0-9.0)
[2017-08-31 20:56] LABS: Bacteria/HPF None Seen HPF (None Seen); Hyaline Casts/LPF 0-3 HYALINE CAST LPF (0-3 Hyaline); Pathc Cast-AUWi Flag 0.43 (0-2.49); RBC/HPF 0-3 HPF (0-3); Squamous Epithelial 0-3 HPF (0-3); WBC/HPF 0-3 HPF (0-3)
--- NOTE | 2017-08-31 21:14 | RAD ---
RADIOGRAPH CHEST 1 VIEW: Date: 08/31/2017 Time: 7:03 p.m. HISTORY: A 56-year-old female with dyspnea and cough. COMPARISON: 03/16/2017 FINDINGS: Again noted are the bilaterally shaggy cardiac borders. This is probably due to bilateral paracardia l fat pads. This appears slightly more prominent now than on the prior study, but that could be due to technical issues. No consolidation. Sternotomy wires are again noted. No pneumothorax. No gita r interval change. IMPRESSION: 1. Evidence of previous open heart surgery. 2. No acute findings. ZBIGNIEW [] POS: AMAURY
[2017-08-31 23:15] LABS: BF Color Yellow; Body Fluid Source Ascites Body Fluid; Clarity Cloudy/Turbid (Clear); Tube # EDTA
[2017-08-31 23:18] LABS: BF WBC/Nonhematics Ct. - Manua 214 /cumm
[2017-08-31 23:19] LABS: BF RBC Count - Manual 869 /cumm
[2017-08-31 23:39] LABS: BF Segmented Neutrophils 8 %; Cell Count Non Hematic 66 %; Lymphocytes 26 %
[2017-09-01] MEDS ORDERED: methylPREDNISolone Sod Succ/PF 125 MG/2 ML VIAL ONE (00:38)
[2017-09-01] MEDS ORDERED: Albumin 25% 25 GM/100 ML BOT IVPB ONE (00:45)
[2017-09-01] MEDS ORDERED: Fentanyl 100 MCG/2 ML VIAL ONE (01:18)
[2017-09-01] MEDS ORDERED: Albuterol Sulfate 2.5 mg/3 ml Neb NEB PRN (01:19)
[2017-09-01] MEDS ORDERED: Dextrose 50% Abboject 50 ML SYRINGE SLOW IVP PRN (02:49)
[2017-09-01] MEDS ORDERED: Dextrose 5% in Water 1,000 ML IV PRN (02:49)
[2017-09-01] MEDS ORDERED: Guaifenesin DM 100-10/5 ML UDCUP PO PRN (02:49)
[2017-09-01] MEDS ORDERED: HYDROcodone/Acetaminophen 5/325 mg Tablet PO PRN (02:49)
[2017-09-01] MEDS ORDERED: HumaLOG 300 UNITS/3 ML VIAL SC PRN (02:49)
[2017-09-01] MEDS ORDERED: Ondansetron ODT 4 MG TAB PO PRN (02:49)
[2017-09-01] MEDS ORDERED: Acetaminophen 325 MG TAB PO PRN (02:49)
--- NOTE | 2017-09-01 02:53 | HP ---
DATE OF ADMISSION: 08/31/2017 CHIEF COMPLAINT: Shortness of breath. HISTORY OF PRESENT ILLNESS: This is a 56-year-old morbidly obese white female with a known history o f type 2 diabetes mellitus, COPD, and CABG and she came in with a complaint of distended abdomen asso ciated with severe shortness of breath. The patient also has a known history of obstructive sleep ap devante and she uses CPAP at home. She noted that she has been having worsening shortness of breath, but she did not realize that her abdomen is getting distended. She denies having any constipation, no n ausea, no vomiting, no diarrhea. She does complain of abdominal pain range of 4 or 5 intensity, diff use pain, not associated with any nausea or vomiting. When she presented to the ER, she had a CT of the abdomen, a CT of the chest with the suspicion for dissection, which showed an evidence of liver c irrhosis and splenomegaly and also showed an evidence of left breast inflammation, possibly need to r ule out inflammatory carcinoma of the breast. All other cancer markers were ordered and is pending a t this time. The patient denies having any pain at this time and almost 5-6 liters of ascitic fluid has been drained. PAST MEDICAL HISTORY: 1. Type 2 diabetes mellitus. 2. COPD. 3. CABG. 4. History of obstructive sleep apnea on CPAP. PAST SURGICAL HISTORY: History of CABG in 2016, history of C-sections x2, has tubes tied. HOME MEDICATIONS: She is on Lipitor 20 mg p.o. daily, Lasix 40 mg p.o. daily, metformin 1 gram p.o. twice a day, lisinopril 2.5 mg p.o. daily, gabapentin 60 mg p.o. daily, aspirin 81 mg p.o. daily, Dul era inhaler. ALLERGIES: CODEINE. SOCIAL HISTORY: Smokes 2 packs a day. No history of illicit drug use. She lives with her ex-husban d. FAMILY HISTORY: The patient is adopted. She does not know much about her biological parents. CODE STATUS: FULL CODE. Power of workers compensation defense attorney is her daughter, Ms. Krueger. REVIEW OF SYSTEMS: All 12 systems are reviewed with the patient thoroughly and found to be negative at this time except the ones described in HPI. Constitutional: Weight loss or gain, sense of well-b eing, ability to conduct usual activities, exercise tolerance. Skin/Breast: Rash, itching, changes in hair growth or loss, nail changes, breast lumps, tenderness, swelling, nipple discharge. Eyes: V ision, double vision, tearing, blind spots, pain. ENT/Mouth: Headaches (location, time of onset, du ration, precipitating factors), vertigo, lightheadedness, injury. Vision, double vision, tearing, bl ind spots, pain, nose bleeding, colds, obstruction, discharge, dental difficulties, gingival bleeding , dentures, neck stiffness, pain, tenderness, masses in thyroid or other areas. Cardiovascular: Pre cordial pain, substernal distress, palpitations, syncope, dyspnea on exertion, orthopnea, nocturnal p aroxysmal dyspnea, edema, cyanosis, hypertension, heart murmurs, varicosities, phlebitis, claudicatio n. Respiratory: Pain, shortness of breath, wheezing, stridor, cough, hemoptysis, fever or night swe ats. Gastrointestinal: Poor appetite, dysphagia, indigestion, abdominal pain, heartburn, eructation , nausea, vomiting, hematemesis, jaundice, constipation, or diarrhea, abnormal stools (kraig-colored, tarry, bloody, greasy, foul smelling), flatulence, hemorrhoids, recent changes in bowel habits. Iris tourinary: Urgency, frequency, dysuria, nocturia, hematuria, polyuria, oliguria, unusual (or change in) color of urine, stones, hesitancy, change in size of stream, dribbling, acute retention or incont inence, libido, potency. Musculoskeletal: Pain, swelling, redness or heat of muscles or joints, manriquez itation, of motion, muscular weakness, atrophy, cramps. Neurologic/Psychiatric: Convulsions, paraly zes, tremor, incoordination, paresthesias, difficulties with memory of speech, sensory or motor distu rbances, or muscular coordination (ataxia, tremor), emotional problems, anxiety, depression, previous psychiatric care, unusual perceptions, hallucinations. Allergy/Immunologic: Skin rash, anemia, ble eding tendency, polydipsia, polyuria, intolerance to heat or cold. ALLERGIES: CODEINE. PHYSICAL EXAMINATION: VITAL SIGNS: Blood pressures are 150/88, heart rate is 18, saturation is 88% on 3 liters. GENERAL: The patient is moderately built and moderately nourished. She does not appear to be any ac [place] distress at this time. She is alert, oriented x3. HEENT: Atraumatic, normocephalic. CARDIOVASCULAR: S1, S2 normal. No murmurs, rubs, or gallops. LUNGS: Bilateral air entry was equal. No wheezing, no crackles. ABDOMEN: Distended markedly. Sciatic abdomen. No guarding, no rebound tenderness. No bowel sounds were heard. MUSCULOSKELETAL: No calf tenderness. Pedal edema is noted up to 3+ up to the thighs. No calf tende rness, no joint tenderness, no joint swelling. SKIN: No cyanosis. Erythema is noted in the lower extremities, likely from venous congestion. CRANIAL NERVOUS SYSTEMS: Cranial nerve examination II through XII are intact. PSYCHIATRIC: No signs of suicidal ideation or signs of kathleen, NECK: JVD is noted. No thyromegaly. LABORATORY DATA: WBC 9.2, hemoglobin 10.1, hematocrit 33.1, platelets are 241,000. Sodium 138, pota ssium 4.4, chloride is 101, bicarb is 23, BUN is 13, creatinine 1.09, blood sugar 123, AST 11, ALT 7. BNP 235. UA was negative for any urinary tract infection. INR 1.1. IMAGING: CTA of the chest was done, which showed no evidence of any dissection, but it showed eviden ce of cholelithiasis, evidence of cirrhotic liver and evidence of right breast inflammation. A chest x-ray was done showed evidence of no cardiopulmonary process. ASSESSMENT: 1. Acute hypoxic respiratory failure. 2. Massive ascites. 3. Type 2 diabetes mellitus. 4. Chronic obstructive pulmonary disease. 5. Obstructive sleep apnea. 6. Coronary artery disease, coronary artery bypass grafting. 7. New diagnosis of liver cirrhosis. PLAN: 1. Plan is to closely monitor this patient with nasal cannula at this time and will continue with th e CPAP from home. The patient's respiratory status has been stable following draining of 5 liters of ascitic fluid. 2. The patient has a new diagnosis of liver cirrhosis. We will order ultrasound of the liver to [facility] for liver architecture and will plan to consult GI for further evaluation of this. We will order h epatic function panel to look for any hepatitis C and hepatitis B contributing to the present liver c irrhosis. Patient is not a known alcoholic. 3. The patient has history of COPD. No evidence of an exacerbation. We will closely monitor. Cont inue the patient on albuterol and DuoNeb nebulizer treatments and will continue the patient on Dulera . 4. The patient has type 2 diabetes mellitus, well-controlled. We will hold off on the metformin at this time and will continue on sliding scale insulin. 5. History of coronary artery bypass graft. We will continue patient on aspirin, beta marika, and lisinopril, and also add spironolactone at this time. 6. Deep venous thrombosis prophylaxis, Lovenox 40 mg subcu daily. I have spent 75 minutes with this patient.
[2017-09-01 03:59] VITALS: BMI 41.8
[2017-09-01 05:44] LABS: #Lymphocytes 0.6 thou/uL (1.20-3.40); #Monocytes 0.1 thou/uL (0.11-0.59); #Neutrophils 6.3 thou/uL (1.40-6.50); %Eosinophils 0.4 % (0.0-10.0); %Lymphocytes 8.2 % (21.0-51.0); %Neutrophils 89.4 % (42.0-75.0); Hemoglobin 10.1 g/dL (12.0-16.0); Mean Corpuscular HGB CONC 32.1 g/dL (32.0-36.0); Mean Corpuscular Hemoglobin 23.8 pg (27.0-31.0); Mean Corpuscular Volume 73.9 fl (81.0-99.0); Platelet Count 210 thou/uL (130-400); RBC Distribution Width 19.5 % (11.5-14.5); Red Blood Cell (RBC) Count 4.26 mill/uL (4.20-5.40)
[2017-09-01] MEDS: Furosemide 40 MG/4 ML VIAL SLOW IVP SCH ×2 (05:55→15:30)
[2017-09-01 05:56] LABS: ALT (SGPT) Less than 7 U/L (8-55); AST (SGOT) 9 U/L (5-34); Albumin 3.9 g/dL (3.5-5.0); Alkaline Phosphatase 136 U/L (40-150); Anion Gap 15 mmol/L (10-20); BUN (Urea Nitrogen) 12 mg/dL (9.8-20.1); Bilirubin, Direct 0.5 mg/dL (0.1-0.3); Bilirubin, Total 0.7 mg/dL (0.2-1.2); Calc. Creatinine Clearance 110 mL/min (70-130); Calcium 8.9 mg/dL (7.8-10.44); Carbon Dioxide 24 mmol/L (22-29); Chloride 102 mmol/L (98-107); Estimated GFR-MDRD 58; Glucose 128 mg/dL (70-105); Potassium 4.4 mmol/L (3.5-5.1); Protein, Total 6.5 g/dL (6.0-8.3); Sodium 137 mmol/L (136-145)
[2017-09-01] MEDS: Mometasone/Formoterol 120 PUFF INHALER INH SCH ×2 (06:33→19:08)
--- NOTE | 2017-09-01 09:54 | ULT ---
SONOGRAM ABDOMEN COMPLETE: HISTORY: Abdominal pain. Cirrhosis. FINDINGS: Shadowing stones are apparent within the gallbladder lumen. The gallbladder is incompletely distende d, resulting in apparent thickening. No pericholecystic fluid. The common duct is 0.5 cm. A small amount of free fluid is apparent within the abdomen and pelvis. Liver has a heterogeneous echotextur e and nodular contour. Spleen is 16.2 cm. Kidneys and visualized portions of the abdominal aorta, I VC, and pancreas are unremarkable. IMPRESSION: 1. Cholelithiasis. No evidence of acute biliary obstruction. 2. Findings of portal venous hypertension include moderate splenomegaly and small amount of ascites. POS: OFF
[2017-09-01] MEDS: Benzonatate 100 MG CAP PO SCH (10:08)
[2017-09-01] MEDS: Gabapentin 300 MG CAP PO SCH ×2 (10:08→20:51)
[2017-09-01] MEDS: Spironolactone 25 MG TAB PO SCH (10:08)
[2017-09-01] MEDS: Lisinopril 2.5 MG TAB PO SCH (10:09)
[2017-09-01] MEDS: Aspirin 81 mg Enteric Coated Tablet PO SCH (10:09)
[2017-09-01] MEDS: Carvedilol 3.125 MG TAB PO SCH ×2 (10:09→20:51)
[2017-09-01] MEDS: predniSONE 20 MG TAB PO SCH ×2 (10:10→20:51)
[2017-09-01] MEDS: Famotidine 20 MG TAB PO SCH ×2 (10:10→20:50)
--- NOTE | 2017-09-01 10:19 | PDOC.PN ---
- Subjective Encounter Start Date: 09/01/17 Encounter Start Time: 11:20 Subjective: Patient feeling much better after paracentesis in the ER. Less SOB -: Able to lay flat and sleep now. - Objective Resuscitation Status: Resuscitation Status FULL:Full Resuscitation MAR Reviewed: Yes Vital Signs & Weight: Vital Signs (12 hours) Temp Pulse Resp BP Pulse Ox 09/01/17 08:00 97.2 F L 68 22 H 134/74 93 L 09/01/17 06:35 70 14 09/01/17 04:06 98.3 F 99 22 H 92 L 09/01/17 03:56 98.3 F 99 22 H 125/72 92 L Weight Weight 236 lb 4.8 oz I&O: 08/31/17 09/01/17 09/02/17 06:59 06:59 06:59 Intake Total 240 Output Total 300 Balance -60 Result Diagrams: 09/01/17 04:38 09/01/17 04:38 Additional Labs: Accuchecks 09/01/17 05:55 POC Glucose 162 H Phys Exam - Physical Examination Constitutional: NAD Morbidly obese HEENT: moist MMs Neck: no nodes, no JVD, full ROM Respiratory: no wheezing, no rales, no rhonchi Cardiovascular: RRR, no significant murmur Gastrointestinal: soft, positive bowel sounds obese, not tense Musculoskeletal: no edema Neurological: non-focal, moves all 4 limbs Psychiatric: normal affect, A&O x 3 Dx/Plan (1) Acute exacerbation of CHF (congestive heart failure) Code(s): I50.9 - HEART FAILURE, UNSPECIFIED Status: Acute Qualifiers: Heart failure type: diastolic Qualified Code(s): I50.33 - Acute on chronic diastolic (congestive) heart failure Comment: EF 55-60%, severe RV enlargement in 03/2017 (2) Ascites Code(s): R18.8 - OTHER ASCITES Status: Acute Qualifiers: Comment: Likely due to CHF, does have some nodularity of the liver but albumin and coags normal, no hx of alcohol abuse, breathing much improved after paracentesis 6L removed (3) CAD (coronary artery disease) Code(s): I25.10 - ATHSCL HEART DISEASE OF [place] CORONARY ARTERY W/O ANG PCTRS Status: Chronic Qualifiers: Coronary Disease-Associated Artery/Lesion type: bypass graft [place] vs. transplanted heart: [place] heart Associated angina: without angina Qualified Code(s): I25.810 - Atherosclerosis of coronary artery bypass graft(s) without angina pectoris (4) DM2 (diabetes mellitus, type 2) Status: Chronic Qualifiers: Diabetes mellitus skilled nursing insulin use: without termite inspector use Diabetes mellitus complication status: with unspecified complications Qualified Code(s) : E11.8 - Type 2 diabetes mellitus with unspecified complications (5) HTN (hypertension) Code(s): I10 - ESSENTIAL (PRIMARY) HYPERTENSION Status: Chronic Qualifiers: Hypertension type: essential hypertension Qualified Code(s): I10 - Essential (primary) hypertension (6) [place] (obstructive sleep apnea) Code(s): G47.33 - OBSTRUCTIVE SLEEP APNEA (ADULT) (PEDIATRIC) Status: Chronic Comment: CPAP hs (7) COPD (chronic obstructive pulmonary disease) Status: Chronic - Plan cont current plan of care, PT/OT, DVT proph w/lovenox Lasix, Cardiology and GI consulted * . - Discharge Day Encounter end time: 11:35
[2017-09-01] MEDS: Enoxaparin Sodium 40 MG/0.4 ML SYRINGE SC SCH (11:39)
[2017-09-01 12:07] LABS: Reference Lab Name LABCORP
[2017-09-01] MEDS: HumaLOG 300 UNITS/3 ML VIAL SC PRN ×2 (12:16→17:33)
--- NOTE | 2017-09-01 19:27 | CON ---
DATE OF CONSULTATION: 09/01/2017 REASON FOR CONSULTATION: Ascites, possible cirrhosis. CONSULTING PHYSICIAN: Dr. Shan Conrad. HISTORY OF PRESENT ILLNESS: The patient is a 56-year-old female with past medical history of COPD, c oronary artery disease status post CABG, diabetes, and obstructive sleep apnea, presenting with compl aints of increased shortness of breath. She states that she has been having increased shortness of b reath since 04/2017, characterized as initially more shortness of breath with exertion, but then prog ressed to shortness of breath at rest and inability to adequately ambulate because of this increased shortness of breath. This was also associated with increased abdominal distention to the point where she was unable to bend over or adequately move in order to go about her activities of daily living. With this increased abdominal distention, she also endorses increased abdominal pain characterized a s a sharp stabbing/aching type pain that was constant and would radiate to her lower back; however, t his was alleviated yesterday with the paracentesis and obtained approximately 6 liters of fluid at th at time. Currently, she denies any nausea, vomiting, fevers, chills, hematemesis, melena, hematochez ia, dysphagia, odynophagia, jaundice, encephalopathy, spider angiomata, diarrhea or constipation. Of note, she was started on Lyrica in April 2017 with the appearance of her increased abdominal di stention afterwards; however, she was subsequently discontinued on this medication after 1 month of u se with continued abdominal distention beyond that. She also endorses the use of intermittent ibupro fen 800 mg 2 times per week as well as acetaminophen 500 mg twice daily as needed for pain. REVIEW OF SYSTEMS: A 10 category review of systems was obtained with all responses negative except f or the pertinent positives as listed in the HPI. PAST MEDICAL HISTORY: As per HPI. PAST SURGICAL HISTORY: Coronary artery bypass graft in 2016, C-sections x2, bilateral tubal ligation . FAMILY HISTORY: The patient is adopted with unknown family history. SOCIAL HISTORY: She smokes approximately 2 packs per day and has for greater than the last 10 years. Drinks approximately 1-2 drinks every 2-3 months. She denies any illicit drug use. OUTPATIENT MEDICATIONS: Reviewed. ALLERGIES: CODEINE. PHYSICAL EXAMINATION: VITAL SIGNS: Temperature 97.4, pulse 90, blood pressure 126/73, respiratory rate 14, satting 94% on 3 liters nasal cannula. GENERAL: The patient is lying in bed, in no acute distress. No conversational dyspnea noted. He is alert and oriented x4. NECK: Supple. No JVD noted, although it was difficult to discern due to subcutaneous fat. CARDIOVASCULAR: Regular rate and rhythm with no discernible murmurs, gallops or rubs, although heart sounds were distant in relation to body habitus. PULMONARY: Clear to auscultation bilaterally with no discernible wheezes or rales. ABDOMEN: Significantly distended abdomen. Normoactive bowel sounds, soft, mildly tender to palpatio n in the periumbilical region. Positive shifting dullness. EXTREMITIES: 2+/3+ bilateral lower extremity edema extending to the mid thigh. No cyanosis or clubb ing noted. LABORATORY DATA: CBC with a white blood cell count of 7, hemoglobin 10.1, hematocrit 31.5, platelets 210. INR 1.1. Chemistry with a sodium of 137, potassium 4.4, chloride 102, CO2 24, BUN 12, creatin ine 0.99, glucose 128, AST 9, ALT less than 7, alkaline phosphatase 136, total bilirubin 0.7, albumin 3.9. BNP 242. IMAGING DATA: CT scan obtained on 08/31/2017 showed mildly enlarged mediastinal lymph nodes, large v olume abdominal ascites with hepatic appearing nodular as well as splenomegaly and mesenteric lymphad enopathy. Right upper quadrant ultrasound was obtained on 09/01/2017 that showed heterogeneous echot exture and nodular contour to the liver as well as a small amount of ascites surrounding the liver. There was some evidence of gallstones, but no evidence of cholecystitis. ASSESSMENT AND PLAN: The patient is a 56-year-old female with past medical history of chronic obstru ctive pulmonary disease, coronary artery disease status post coronary artery bypass grafting, diabete s, and obstructive sleep apnea presenting with increased shortness of breath and significant abdomina l distention secondary to ascites concerning for the presence of cirrhosis. Possible cirrhosis: The patient is presenting with a history of increased shortness of breath since 04/2018 that was associated with increased abdominal distention during the same time. Due to the poi nt where she was now unable to adequately ambulate as a result of her increased abdominal distention as well as causing increased pain in the periumbilical region. She subsequently sought medical atten tion at [facility] with the findings of cirrhotic morphology on imaging, both on the CT scan and right upper quadrant ultrasound as well as splenomegaly concerning for the sequelae of portal hy pertension. Also noted was a significant amount of ascites also wanting further credence towards por melany hypertension. Paracentesis performed on 08/31/2017 showed 214 white blood cells with 8% being PM Ns, which is not indicative of spontaneous bacterial peritonitis. However, upon further review of he r liver labs, she has never had an elevated transaminitis since initial labs were drawn in 12/2015. She has intermittently had a mild elevation in alkaline phosphatase, but has never been elevated abov e 200. Currently with maintain liver synthetic function as evidenced by normal serum albumin as well as normal total bilirubin. Noninvasive markers of fibrosis including APRI and FIB-4 scores were neg ative for significant fibrosis (APRI score was 0.1 and FIB-4 score was 0.87, not indicative of fibros is). Her current MELD score is also 10, which is not indicative of significant liver dysfunction. W ith a relative maintenance of normal liver and synthetic function including albumin which should be d ecreased with significant ascites. It is highly concerning for possible malignant etiology for her a bdominal ascites. Also noted on imaging was possible inflammation of the left breast concerning for possible malignancy in that region. At this time, the differential could include cirrhosis, malignan cy, lymphoma/leukemia given lymphadenopathy and splenomegaly, hypothyroidism, or cardiac dysfunction contributing to the formation of significant ascites. RECOMMENDATIONS: 1. I will follow up on the fluid albumin level that I ordered earlier today to help calculate a SAAG score to help further determine etiology of her ascites. 2. We would follow up on cytology of the paracentesis fluid for possible malignant origin. 3. We would place the patient on high protein low sodium diet in the likelihood of probable cirrhosi s. 4. I will order a full liver workup for determination of possible etiology of liver disease. At thi s point, the most likely etiology of her cirrhotic morphology would be nonalcoholic fatty liver disea se given her body habitus. 5. If patient is determined to have cirrhotic ascites, we then place the patient on diuretic therapy including spironolactone and furosemide in a 5:2 ratio distribution. We will continue to follow. Please call with any questions.
[2017-09-01] MEDS: Atorvastatin Calcium 20 MG TAB PO SCH (20:50)
[2017-09-01] MEDS ORDERED: Benzonatate 100 MG CAP PO PRN (22:59)
--- NOTE | 2017-09-01 23:09 | CON ---
DATE OF CONSULT: 09/01/17 HISTORY OF PRESENT ILLNESS: The patient is a 56-year-old woman who presents for evaluation of abdominal swelling and dyspnea. The patient has a long history of cor pulmonale. She has previously undergone coronary bypass graft surgery. The patient has a history of pulmonary hypertension secondary to chronic obstructive pulmonary disease.The patient presented with increasing abdominal distention. She also reported feeling dyspneic. PAST MEDICAL HISTORY: 1. Cor pulmonale. 2. Coronary bypass surgery. 3. Diabetes mellitus. 4. Hypertension. 5. Sleep apnea. PAST SURGICAL HISTORY: Coronary bypass surgery, . MEDICATION ON ADMISSION: Lipitor 20 at bedtime, Lasix 40 daily, metformin 1 tablet b.i.d., lisinopril 2.5 daily, gabapentin 600 mg daily, aspirin. ALLERGIES: CODEINE. SOCIAL HISTORY: The patient has a long extensive history of tobacco abuse. REVIEW OF SYSTEMS: Noticeable for weakness, abdominal discomfort and increasing dyspnea. PHYSICAL EXAMINATION: GENERAL: This is an obese woman who is distended with a blood pressure 117/71. NECK: Full. LUNGS: Clear to auscultation. HEART: Regular rate and rhythm, normal S1, S2. II/ systolic murmur. ABDOMEN: Markedly distended. EXTREMITIES: Showed severe bilateral edema. NEUROLOGIC: Nonfocal. VASCULAR: Radial pulses are 2+. LABORATORY DATA: Sodium 137, potassium 4.4, chloride 102, bicarbonate 24, BUN 12, creatinine 0.99 , glucose 128, troponin was less than 0.1. Her white blood cell count was 7.0, hemoglobin 10.1, hematocrit 31.5 and platelets are 210. Her EKG revealed normal sinus rhythm, left ventricular hypertrophy. IMPRESSION: 1. Anasarca. 2. History of coronary bypass surgery x2. 3. Hypertension. 4. Diabetes mellitus. 5. Possible cirrhosis. 6. Tobacco abuse. 7. History of peripheral vascular disease. 8. History of severe tricuspid regurgitation. 9. Sleep apnea. 10. Microcytic anemia. This patient has cor pulmonale with right-sided heart failure. The patient is being treated with IV Lasix. She already underwent a paracentesis. The patient 's prognosis is guarded. We will follow this patient with you through her hospitalization. TAZ
[2017-09-02 05:03] LABS: Iron 22 ug/dL (50-170); Iron Binding Capacity, Total 315 mcg/dL (265-497)
[2017-09-02 05:04] LABS: Thyroid Stimulating Hormone 0.3804 uIU/mL (0.35-4.94)
[2017-09-02 05:05] LABS: HBSAg Index 0.16 S/CO (0-0.99); Hep B Surf Ag Non-Reactive S/CO (NonReactive); Hep C IgG Ab Non-Reactive (NonReactive); Hep C Index 0.15 S/CO (0-0.79)
[2017-09-02 05:06] LABS: Hep A IgM AB Non-Reactive (NonReactive); Hep A IgM S/CO 0.05 S/CO (0-0.79)
[2017-09-02 05:07] LABS: HBCM Index 0.06 S/CO (0-0.79); Hepatitis B Core IGM Abs Non-Reactive (NonReactive)
[2017-09-02 05:56] LABS: Ferritin 29.79 ng/mL (10-291)
[2017-09-02] MEDS: Furosemide 40 MG/4 ML VIAL SLOW IVP SCH ×2 (06:29→14:43)
[2017-09-02] MEDS: Mometasone/Formoterol 120 PUFF INHALER INH SCH ×2 (07:52→18:46)
[2017-09-02] MEDS ORDERED: Budesonide 0.25 MG/2 ML NEB ONE (08:26)
--- NOTE | 2017-09-02 09:16 | PDOC.PN ---
- Subjective Encounter Start Date: 09/02/17 Encounter Start Time: 10:50 Subjective: Patient drank a lot yest, wasn't on a fluid restriction diet, belly larger -: and tense again but still with improved SOB, able to lay flat, able to -: sit up well - Objective Resuscitation Status: Resuscitation Status FULL:Full Resuscitation MAR Reviewed: Yes Vital Signs & Weight: Vital Signs (12 hours) Temp Pulse Resp BP BP Pulse Ox 09/02/17 08:00 96.7 F L 90 18 111/61 99 09/02/17 07:55 91 L 09/02/17 07:52 90 16 91 L 09/02/17 04:00 97.5 F L 89 20 117/68 94 L Weight Weight 238 lb 1.6 oz I&O: 09/01/17 09/02/17 09/03/17 06:59 06:59 06:59 Intake Total 240 660 Output Total 300 1350 Balance -60 -690 Result Diagrams: 09/01/17 04:38 09/01/17 04:38 Additional Labs: Accuchecks 09/02/17 09/01/17 09/01/17 06:05 20:58 16:42 POC Glucose 187 H 204 H 239 H 09/01/17 10:39 POC Glucose 299 H Phys Exam - Physical Examination Constitutional: NAD HEENT: moist MMs Respiratory: no rales, no rhonchi occ wheeze, getting neb treatment right now Cardiovascular: RRR, no significant murmur Gastrointestinal: non-tender, positive bowel sounds distended, more firm today Neurological: non-focal, moves all 4 limbs Psychiatric: normal affect, A&O x 3 Dx/Plan (1) Acute exacerbation of CHF (congestive heart failure) Code(s): I50.9 - HEART FAILURE, UNSPECIFIED Status: Acute Qualifiers: Heart failure type: diastolic Qualified Code(s): I50.33 - Acute on chronic diastolic (congestive) heart failure Comment: EF 55-60%, severe RV enlargement in 03/2017 (2) Ascites Code(s): R18.8 - OTHER ASCITES Status: Acute Qualifiers: Comment: Likely due to CHF, does have some nodularity of the liver but albumin and coags normal, no hx of alcohol abuse, breathing much improved after paracentesis 6L removed, Dr. Quinones working up for possible cirrhosis (3) CAD (coronary artery disease) Code(s): I25.10 - ATHSCL HEART DISEASE OF [place] CORONARY ARTERY W/O ANG PCTRS Status: Chronic Qualifiers: Coronary Disease-Associated Artery/Lesion type: bypass graft [place] vs. transplanted heart: [place] heart Associated angina: without angina Qualified Code(s): I25.810 - Atherosclerosis of coronary artery bypass graft(s) without angina pectoris (4) DM2 (diabetes mellitus, type 2) Status: Chronic Qualifiers: Diabetes mellitus assistant terminal manager insulin use: without [place] use Diabetes mellitus complication status: with unspecified complications Qualified Code(s) : E11.8 - Type 2 diabetes mellitus with unspecified complications (5) HTN (hypertension) Code(s): I10 - ESSENTIAL (PRIMARY) HYPERTENSION Status: Chronic Qualifiers: Hypertension type: essential hypertension Qualified Code(s): I10 - Essential (primary) hypertension (6) TATIANA (obstructive sleep apnea) Code(s): G47.33 - OBSTRUCTIVE SLEEP APNEA (ADULT) (PEDIATRIC) Status: Chronic Comment: CPAP hs (7) COPD (chronic obstructive pulmonary disease) Status: Chronic - Plan cont current plan of care, PT/OT, DVT proph w/lovenox, DVT proph w/SCDs continue lasix diuresis, fluid restriction -: Patient refusing SCDs and Lovenox, I did warn her about the risk of -: DVT and PE in hospitalized patients, encouraged her to at least get up and -: ambulate frequently. * . - Discharge Day Encounter end time: 11:00
[2017-09-02] MEDS: Gabapentin 300 MG CAP PO SCH ×2 (09:35→20:43)
[2017-09-02] MEDS: Carvedilol 3.125 MG TAB PO SCH ×2 (09:36→20:44)
[2017-09-02] MEDS: predniSONE 20 MG TAB PO SCH ×2 (09:39→20:43)
[2017-09-02] MEDS: HumaLOG 300 UNITS/3 ML VIAL SC PRN ×2 (09:39→11:49)
[2017-09-02] MEDS: Lisinopril 2.5 MG TAB PO SCH (09:40)
[2017-09-02] MEDS: Aspirin 81 mg Enteric Coated Tablet PO SCH (09:41)
[2017-09-02] MEDS: Benzonatate 100 MG CAP PO SCH (09:41)
[2017-09-02] MEDS: Spironolactone 25 MG TAB PO SCH (09:41)
[2017-09-02] MEDS: Enoxaparin Sodium 40 MG/0.4 ML SYRINGE SC SCH ×2 (09:47→09:48)
[2017-09-02 11:41] LABS: ANA Symphony (Qualitative) Negative (Negative); EliA Vaculitis New Method **** NEW METHOD ****; Mitochondrial Ab 0.5 U/mL (<4 Negative); dsDNA IgG Antibody 0.6 IU/mL (<10 Negative)
[2017-09-02] MEDS: Famotidine 20 MG TAB PO SCH ×2 (11:46→20:44)
--- NOTE | 2017-09-02 17:34 | PRG ---
DATE OF SERVICE: 09/02/2017 REASON FOR CONSULTATION: Ascites, possible cirrhosis SUBJECTIVE: The patient was doing well overnight with no acute or problems experienced. Currently, denies any nausea, vomiting, fevers, chills, diarrhea or constipation. She does have minimal increased abdominal distention per her with a slight increase in her abdominal discomfort, but otherwise is doing well. OBJECTIVE: VITAL SIGNS: Temperature 96.7, pulse 104, blood pressure 112/68, respiratory rate 20, and satting 97% on 2 liters nasal cannula. GENERAL: The patient is lying in bed in no acute distress. She is alert and oriented x4. CARDIOVASCULAR: Regular rate and rhythm. PULMONARY: Clear to auscultation bilaterally. ABDOMEN: Significantly distended abdomen. Normoactive bowel sounds, soft. Mild tenderness to palpation in the periumbilical region. Positive shifting dullness. EXTREMITIES: A 2+/3+ bilateral lower extremity edema extending to the midthigh. LABORATORY DATA: CBC and chemistry were not available for review. Iron 22, TIBC 315, ferritin 29, immunoglobulins normal, negative acute viral hepatitis panel including hepatitis A, B and C and paracentesis. Albumin was 2.7 with sag ratio of 1.2. IMAGING DATA: No current GI imaging is available for review. ASSESSMENT AND PLAN: The patient is a 56-year-old female with past medical history of chronic obstructive pulmonary disease, coronary artery disease status post CABG, diabetes and obstructive sleep apnea presenting with ascites concerning for the presence of cirrhosis. Possible cirrhosis. The patient initially presented with increased shortness of breath since 04/2017 that was associated with increased abdominal distention over the same time. On admission to [facility], she was noted to have nodular morphology of her liver both on CT scan and right upper quadrant ultrasound as well as splenomegaly concerning for the sequelae of portal hypertension. However, other liver function tests including AST, ALT, alkaline phosphatase, total bilirubin, serum albumin have all been normal, which is not indicative of chronic liver disease. Paracentesis performed on 08/31/2017 was negative for spontaneous bacterial peritonitis. Noninvasive markers of fibrosis including APRI and FIB-4 scores were also negative for significant fibrosis. Further liver workup has also been negative for hemochromatosis, chronic viral hepatitis and initially is not consistent with autoimmune hepatitis with further lab still pending. Given her elevated SAAG ratio at 1.2, she is either indicative of portal hypertension versus congestive heart failure which could be seen in right heart failure/cor pulmonale. RECOMMENDATIONS: 1. We would place the patient on high-protein, low-sodium diet in the likelihood of possible cirrhosis. 2. We will follow up on additional labs for possible etiology of liver disease. 3. We would continue with diuretic administration as you are doing right now for probable congestive heart failure. We will continue to follow. Please call with any questions. MTDD
--- NOTE | 2017-09-02 18:06 | CON ---
DATE OF CONSULTATION: 09/02/2017 HISTORY OF PRESENT ILLNESS: Samina is a very pleasant 56-year-old female. She had a history with me of noncompliance with followup, noncompliance with CPAP and management of her COPD, but she has become very compliant recently with her CPAP and actually is quite dependent on it, because of how well she sleeps when it is on. She presented with complaints of abdominal swelling. She has undergone an abdominal paracentesis. She has been seen by Gastroenterology and Cardiology. She says she feels better after her paracentesis. PAST MEDICAL HISTORY: Remarkable for, 1. Chronic obstructive pulmonary disease. 2. Sleep apnea. She was treated with BiPAP at at home. 3. She has a history of diastolic dysfunction. 4. She has a long history of obesity. 5. She has had coronary bypass grafting in the past. 6. History of hypertension. 7. History of . 8. History of tonsillectomy. 9. Long history of medical noncompliance. She said she could not afford her medicine, but she was buying her cigarettes. I pointed this out to her in summer of 2016. 10. History of type 2 diabetes. 11. History of tubal ligation. 12. History of C-sections in the past. MEDICATIONS: Prior to admission she was on Lipitor, Lasix, metformin, lisinopril, gabapentin, aspirin, and Dulera. SOCIAL HISTORY: She is still smoking. She is not drinking. She has no drug use history. ALLERGIES: She reports an allergy to CODEINE. FAMILY HISTORY: Unknown because she is adopted. REVIEW OF SYSTEMS: Otherwise, 10-point negative. PHYSICAL EXAMINATION: GENERAL: She says she feels much better. She denies having fever prior to admission. VITAL SIGNS: She is afebrile, heart rate is 90, blood pressure 111/61, respiratory rate is 18, oximetry is 91 on room air and 99 on 2-liter cannula. HEENT: Pupils are equal. Sclerae are anicteric. LUNGS: Clear and distant. HEART: Regular rhythm. S1 and S2 are normal. ABDOMEN: Soft and protuberant. EXTREMITIES: Without clubbing, cyanosis, or edema. CT scan suggested of inflammatory changes in the skin. Neither of her breasts showed findings suggestive of mastitis or an inflammatory breast carcinoma when I examined her today. White count yesterday was 7, hemoglobin 10.1, platelets 210. Sodium 137, potassium 4.4, chloride 102, bicarbonate 24, BUN 12, creatinine 0.99 on admission. IMPRESSION: Ascites of unclear etiology. She has imaging suggestive of cirrhosis, but no history of cirrhosis in the past. She does have pulmonary hypertension with her untreated sleep apnea and diastolic dysfunction. She now fortunately is compliant with therapy for her sleep apnea. I will be happy to follow with the other physicians caring for her at this point in time. Fluid management is the biggest issue. She needs fluid restriction as well as diuresis with careful intake and output. She was only negative 690 mL between yesterday and today. This is a 50 minute consult with greater than 50% of the time spent on the unit with coordination of care. TAZ
--- NOTE | 2017-09-02 18:43 | PRG ---
DATE OF SERVICE: 09/02/2017 SUBJECTIVE: Ms. Del Rio recently had a paracentesis. She has significant amount of fluid removed. e currently states she feels much better. Her shortness of breath has improved. Recent echo suggest ed LVEF 50-55% with diastolic dysfunction. She did have a mildly elevated pulmonary artery pressure with moderate tricuspid regurgitation and moderate mitral regurgitation. OBJECTIVE: VITAL SIGNS: Blood pressure 122/70, pulse 20, temperature afebrile. LUNGS: Clear to auscultation. CARDIAC: Regular rate and rhythm. ABDOMEN: Obese, distended. EXTREMITIES: 2+ pitting edema. PERTINENT LABORATORY DATA: Hemoglobin 10.1, hematocrit 31.5, platelet count of 210. IMPRESSION: 1. Cor pulmonale. 2. Ascites. 3. Noncompliance. 4. Tobacco abuse. RECOMMENDATIONS: She has had significant fluid removal for recent paracentesis. She feels much bett er. Her symptoms are most likely related to her right-sided failure. RV appears moderately enlarged . She has been compliant with CPAP lately, but continues to smoke. She has no plans on stopping. A t this point, we will continue current therapy. No other recommendations.
[2017-09-02] MEDS: Atorvastatin Calcium 20 MG TAB PO SCH (20:43)
[2017-09-02] MEDS ORDERED: Benzonatate 100 MG CAP PO SCH (21:00)
[2017-09-03] MEDS: Furosemide 40 MG/4 ML VIAL SLOW IVP SCH ×2 (06:23→13:25)
[2017-09-03] MEDS: Mometasone/Formoterol 120 PUFF INHALER INH SCH (07:02)
[2017-09-03] MEDS: Famotidine 20 MG TAB PO SCH (10:05)
[2017-09-03] MEDS: Carvedilol 3.125 MG TAB PO SCH (10:05)
[2017-09-03] MEDS: Lisinopril 2.5 MG TAB PO SCH (10:05)
[2017-09-03] MEDS: predniSONE 20 MG TAB PO SCH (10:06)
[2017-09-03] MEDS: Spironolactone 25 MG TAB PO SCH (10:06)
[2017-09-03] MEDS: Aspirin 81 mg Enteric Coated Tablet PO SCH (10:06)
[2017-09-03] MEDS: Gabapentin 300 MG CAP PO SCH (10:07)
[2017-09-03] MEDS: Enoxaparin Sodium 40 MG/0.4 ML SYRINGE SC SCH (10:08)
[2017-09-03] MEDS: HumaLOG 300 UNITS/3 ML VIAL SC PRN ×2 (10:11→13:24)
--- NOTE | 2017-09-03 11:49 | PRG ---
DATE OF SERVICE: 09/03/2017 Alba Haas did well overnight. PHYSICAL EXAMINATION: VITAL SIGNS: She is afebrile, heart rate 87, respiratory rate 18, blood pressure 116/71. LUNGS: Clear. She had no wheezes. Intake and output was negative 1410. No new electrolytes or CBC. IMPRESSION: 1. Multiorgan dysfunction. 2. Sleep apnea, now compliant. 3. Chronic obstructive pulmonary disease. She has oxygen and nebulizer at home. 4. Cor pulmonale, likely multifactorial with ascites secondary to this. 5. Radiographic evidence of cirrhosis. It does not appear that the peritoneal fluid was sent for any pathology. I will see her in follow up in 1-2 months.
--- NOTE | 2017-09-03 12:41 | PDOC.CTH ---
Cardiology Progress Note - Subjective Patient without complaint. Overall doing much better. No CP. Still with [place], but much improved. Back to baseline per patient. - ROS shortness of breath - Objective Vital Signs Temp Pulse Resp BP BP Pulse Ox 09/03/17 10:50 87 18 09/03/17 10:05 74 116/71 09/03/17 07:40 97.8 F 74 16 116/71 96 09/03/17 07:05 90 L 09/03/17 07:02 86 18 90 L 09/03/17 04:00 97.4 F L 76 16 91/53 L 96 09/03/17 02:19 91 Weight 236 lb 4.8 oz 09/02/17 09/03/17 09/04/17 06:59 06:59 06:59 Intake Total 660 840 Output Total 1350 2250 Balance -690 -1410 - Physical Examination General/Neuro: NAD Lungs: CTA (decreased BS bilaterally), other: Heart: RRR Abdomen: soft - Telemetry Telemetry Rhythm: SR/ST - Labs Result Diagrams: 09/01/17 04:38 09/01/17 04:38 Troponin/CKMB CK-MB (CK-2) 0.7 ng/mL (0-6.6) 08/31/17 18:58 Troponin I Less than 0.010 ng/mL (< 0.028) 08/31/17 18:58 - Assessment/Plan 1. Cor pulmonale/RHF 2. COPD 3. Tobacco Abuse 4. Cirrhosis 5. TATIANA 6. Obesity Improved overall s/p paracentesis. Patient educated on early symptoms/signs of CHF. Educated to quit smoking. Continue using CPAP. Will f/u in the office in a few weeks.
[2017-09-03 20:50] VITALS: BP 112/66; TEMP 97.7
--- NOTE | 2017-09-04 00:41 | DIS ---
DATE OF ADMISSION: 09/01/2017 DATE OF DISCHARGE: 09/03/2017 CONDITION AT THE TIME OF DISCHARGE: Stable and improved. DISCHARGE DISPOSITION: Home. DISCHARGE DIAGNOSES: 1. Acute on chronic right-sided diastolic congestive heart failure. 2. Significant ascites secondary to #1, status post paracentesis. 3. History of coronary artery disease status post coronary artery bypass graft without any angina. 4. Diabetes mellitus type 2. 5. Hypertension. 6. Obstructive sleep apnea on CPAP at bedtime. 7. Chronic obstructive pulmonary disease without any acute exacerbation. IN HOUSE CONSULTATIONS: 1. Gastroenterology, Dr. Gomez. 2. Cardiology, Dr. Aguilar, and Dr. Dorado. 3. Pulmonary medicine, Dr. Ennis. DISCHARGE MEDICATIONS: New medications: Carvedilol 3.125 mg p.o. b.i.d., Aldactone 12.5 mg p.o. norma ly, and Medrol Dosepak. Resume home medications as follows, Dulera 1 puff b.i.d. 200/5 mcg, Lipitor 20 mg daily, gabapentin 600 mg p.o. b.i.d., lisinopril 2.5 mg daily, aspirin 81 mg daily, Lasix 40 mg p.o. b.i.d., metformin 1000 mg p.o. b.i.d., albuterol inhaler as needed, and DuoNeb as needed. PRIMARY CARE PHYSICIAN: Jay Reyes M.D. PROCEDURES DONE IN THE HOSPITAL: CT with aortic dissection protocol on admission of the thorax and a bdomen. It is negative for any dissection or aneurysm. It shows large volume of ascites, mild splen omegaly, cholelithiasis, anasarca, coronary atherosclerosis and possible cirrhosis. Transthoracic ec hocardiogram which shows poor endocardial definition, LV ejection fraction 50%-55%, diastolic dysfunc tion, moderate enlarged right ventricular cavity, moderate tricuspid and mitral regurgitation and mil dly elevated pulmonary arterial pressure. HISTORY OF PRESENT ILLNESS: Ms. Del Rio is a 56-year-old female with known history of tobacco abuse, s leep apnea, diabetes, coronary artery disease who presented to the emergency room with complaints of worsening shortness of breath. This is despite her using CPAP at night and oxygen during daytime. T he patient also did complain of abdominal pain and difficulty to band in the abdomen being significan tly tight. She underwent a CT of the chest and abdomen with dissection protocol which was negative f or same but showed possible cirrhosis and splenomegaly, ascites, and anasarca. There was also some q uestion of left breast inflammation. The patient was admitted with a presumptive diagnosis of acute hypoxic respiratory failure. She was found to be hypoxic on presentation with oxygen saturation of 8 8% on 3 L. She was found to have massive ascites which was a new diagnosis for her. She was also ad mitted to get worked up for any liver pathology at this time. Please see admission history and physi murray for further detail. DISCHARGE DIAGNOSES: Chronic hypoxic respiratory failure on chronic home oxygen. HOSPITAL COURSE: The patient underwent abdominal ultrasound and GI saw her. Her liver enzymes were unremarkable. She underwent testing for multiple other reasons for possible liver failure and liver cirrhosis leading to ascites, but all of these pathologies were negative. She has testing done for s pontaneous bacterial peritonitis in ascetic fluid. Her serum markers for fibrosis were negative. Sh e had negative testing for various autoimmune disorders and chronic viral hepatitis as well as autoim mune hepatitis and hemochromatosis. This was thought secondary to be right-sided heart failure and p ortal arterial hypertension because of possibly diastolic heart failure and significant COPD and pulm onary arterial hypertension. The patient was diuresed. She was also seen by Cardiology for acute on chronic diastolic congestive heart failure. Echocardiog michelle was done which showed findings consistent with the same as well as mild pulmonary arterial hypert ension. Dr. Dorado and Dr. Aguilar saw the patient and agreed with diuresis. She was also seen by Dr. Ennis given her history of acute on chronic hypoxic respiratory failure on p resentation and sleep apnea. He recommended continuation of the CPAP and oxygen as previously. By the time of her discharge, the patient was back to her baseline. She underwent a successful parac entesis with removal of almost 6 L of ascitic fluid. The fluid culture was negative till date. The patient was seen and examined prior to discharge this morning and is eager to go home. She has n o new complaints and feels that her belly even though still big, is quite softer and she is able to m ove around without difficulty. PHYSICAL EXAMINATION: VITAL SIGNS: This morning; temperature 98.5, pulse of 85, respirations 16, saturating 97% on 3 L shannan al cannula, blood pressure 108/68. GENERAL: No acute distress, sitting up in the chair, awake, alert, oriented x3. CHEST: Clear to auscultation with minimal wheezing bilaterally. ABDOMEN: Soft, significantly distended without any fluid wave. It is nontender on palpation. No re bound, guarding or rigidity. EXTREMITIES: Show trace pitting edema. The patient at this time will be discharged home. She is instructed to follow up with [facility] and referrals have been sent. She is reluctant because of the distance. She is encouraged to follow up with Cardiology as well as Pulmonary Medicine. [facility] She has been started on Aldactone in addition to the Lasix. With regards to the possibility of inflammatory breast cancer seen on the CT scan on the day of presentation: The patient is given instructions to get the mammogram done bilaterally as an outpatient. She was given work order for . She is instructed to follow up with her primary care physician, Dr. Jay Reyes for the resu lts of the mammogram as soon as possible. There was concern of right-sided mastitis versus right jessica ast inflammatory carcinoma. Discharge plan was discussed with the patient who verbalized understanding. Total time spent in the discharge of this patient 38 minutes.
[2017-09-04] MEDS ORDERED: predniSONE 20 MG TAB PO SCH (09:00)
[2017-09-08] MEDS ORDERED: predniSONE 20 MG TAB PO SCH (09:00)
== END 2017-09-03 17:13 | disposition home or self-care (01) | DRG 291 ==
LOC: ERS 18:38 → 2NO 09-01 02:39
PROVIDERS: ADMIT Family Medicine; ATTEND Family Medicine
PROC: 0W9G3ZZ Drainage of Peritoneal Cavity, Percutaneous Approach (ICD-10-PCS; principal; 2017-09-01)
DX: I50.33 Acute on chronic diastolic (congestive) heart failure (principal); J96.01 Acute respiratory failure with hypoxia; Z68.41 Body mass index [BMI] 40.0-44.9, adult; R18.8 Other ascites; J44.9 Chronic obstructive pulmonary disease, unspecified; Z95.1 Presence of aortocoronary bypass graft; E11.9 Type 2 diabetes mellitus without complications; G47.33 Obstructive sleep apnea (adult) (pediatric); I27.81 Cor pulmonale (chronic); E66.01 Morbid (severe) obesity due to excess calories; I25.10 Atherosclerotic heart disease of native coronary artery without angina pectoris; K74.60 Unspecified cirrhosis of liver; Z79.899 Other long term (current) drug therapy; Z79.84 Long term (current) use of oral hypoglycemic drugs; Z79.82 Long term (current) use of aspirin; Z88.5 Allergy status to narcotic agent; Z91.14 Patient's other noncompliance with medication regimen; I07.1 Rheumatic tricuspid insufficiency; F17.210 Nicotine dependence, cigarettes, uncomplicated; I73.9 Peripheral vascular disease, unspecified; D64.9 Anemia, unspecified
CPT/HCPCS: 36415; 36416; 49083; 71045; 71275; 76700; 80048; 80053; 80074; 80076; 81003; 81015; 82042; 82103; 82390; 82553; 82728; 82945; 83516; 83540; 83550; 83735; 83880; 84155; 84157; 84443; 84484; 85025; 85060; 85379; 85610; 85730; 86038; 86225; 87070; 87205; 89051; 93005; 93306; 93798; 94640; 94660; 96365; 96366; 96375; A4216; G8978-GP-CL; G8979-GP-CL; G8980-GP-CL; G8987-GO-CI; G8988-GO-CI; G8989-GO-CI; J1650; J1940; J2001; J2930; J3010; J7506; J7620; J7626; P9047

== ENCOUNTER 2017-11-17 16:30 | Emergency (ER) | payer OTHER ==
[2017-11-17 17:54] LABS: ALT (SGPT) Less than 7 U/L (8-55); AST (SGOT) 7 U/L (5-34); Albumin 4.2 g/dL (3.5-5.0); Alkaline Phosphatase 169 U/L (40-150); Anion Gap 19 mmol/L (10-20); BUN (Urea Nitrogen) 21 mg/dL (9.8-20.1); Bilirubin, Total 0.8 mg/dL (0.2-1.2); Calc. Creatinine Clearance 0 mL/min (70-130); Calcium 9.7 mg/dL (7.8-10.44); Carbon Dioxide 20 mmol/L (22-29); Chloride 105 mmol/L (98-107); Estimated GFR-MDRD 43; Globulin 3.4 g/dL (2.4-3.5); Glucose 89 mg/dL (70-105); Potassium 4.7 mmol/L (3.5-5.1); Protein, Total 7.6 g/dL (6.0-8.3); Sodium 139 mmol/L (136-145)
[2017-11-17 17:59] LABS: CKMB 0.6 ng/mL (0-6.6); Troponin I Less than 0.010 ng/mL (< 0.028)
[2017-11-17 18:06] LABS: #Eosinphils 0.2 thou/uL (0.0-0.7); #Lymphocytes 1.4 thou/uL (1.20-3.40); #Monocytes 0.5 thou/uL (0.11-0.59); #Neutrophils 6.2 thou/uL (1.40-6.50); %Basophils 0.6 % (0.0-1.0); %Eosinophils 2.6 % (0.0-10.0); %Lymphocytes 16.3 % (21.0-51.0); %Monocytes 5.7 % (0.0-10.0); %Neutrophils 74.8 % (42.0-75.0); Hemoglobin 9.9 g/dL (12.0-16.0); Mean Corpuscular HGB CONC 31.1 g/dL (32.0-36.0); Mean Corpuscular Hemoglobin 22.9 pg (27.0-31.0); Mean Corpuscular Volume 73.6 fL (78.0-98.0); Mean Platelet Volume 8.1 fL (7.4-10.4); Platelet Count 314 thou/uL (130-400); RBC Distribution Width 16.5 % (11.5-14.5); Red Blood Cell (RBC) Count 4.32 mill/uL (4.20-5.40); White Blood Cell (WBC) Count 8.3 thou/uL (4.8-10.8)
--- NOTE | 2017-11-17 18:24 | RAD ---
PORTABLE AP CHEST X-RAY 11/17/17 HISTORY: Swelling to abdomen. Dyspnea on exertion. Cough. COMPARISON: 08/31/17. FINDINGS: Median sternotomy wires are again seen with fractures involving multiple sternotomy wires. Cardiac si lhouette is magnified by projection but stable in size but does appear mildly enlarged. Pulmonary vas culature is within normal limits. There is mild atelectasis present at the left lung base. Lungs are otherwise clear. No other interval change. IMPRESSION: 1. No acute cardiopulmonary process. 2. Cardiomegaly without overt CHF. POS: [facility]
[2017-11-17] MEDS ORDERED: Lidocaine 1% w/Epinephrine 1:100K 20 ML VIAL ONE (19:06)
[2017-11-17] MEDS ORDERED: Ondansetron HCl/PF 4 MG/2 ML Vial ONE (20:48)
== END 2017-11-17 22:32 | disposition home or self-care (01) ==
LOC: ERS 16:30
DX: R18.8 Other ascites (principal); I11.0 Hypertensive heart disease with heart failure; I50.9 Heart failure, unspecified; J44.9 Chronic obstructive pulmonary disease, unspecified; I25.2 Old myocardial infarction; F41.9 Anxiety disorder, unspecified; F32.9 Major depressive disorder, single episode, unspecified; F17.210 Nicotine dependence, cigarettes, uncomplicated; Z79.899 Other long term (current) drug therapy; Z79.82 Long term (current) use of aspirin; Z79.84 Long term (current) use of oral hypoglycemic drugs
CPT/HCPCS: 49083; 71045; 80053; 82553; 83880; 84484; 85025; 93005; 96374; 96375; J2001; J2270; J2405

== ENCOUNTER 2017-11-18 11:31 | Emergency (ER) | payer OTHER ==
[2017-11-18] MEDS ORDERED: Lidocaine 1% w/Epinephrine 1:100K 20 ML VIAL ONE (11:50)
--- NOTE | 2017-11-18 12:53 | RAD ---
UPRIGHT PORTABLE CHEST ONE VIEW: History: 57-year-old female with history of draining from site of previous paracentesis. Follow up abdominal s welling and dyspnea on exertion. Comparison: 11-17-17 FINDINGS: Post underlying sternotomy. Cardiomegaly with mild bilateral vascular congestion with possible small right pleural effusion. No confluent pneumonia. IMPRESSION: Overall stable appearing chest with minimal cardiomegaly and bilateral vascular congestion and possib le small right pleural effusion. POS: [facility]
[2017-11-18 13:07] LABS: CKMB 0.8 ng/mL (0-6.6); Troponin I Less than 0.010 ng/mL (< 0.028)
[2017-11-18 13:10] LABS: ALT (SGPT) Less than 7 U/L (8-55); AST (SGOT) 8 U/L (5-34); Albumin 3.7 g/dL (3.5-5.0); Alkaline Phosphatase 143 U/L (40-150); Anion Gap 15 mmol/L (10-20); BUN (Urea Nitrogen) 26 mg/dL (9.8-20.1); Bilirubin, Total 0.9 mg/dL (0.2-1.2); Calc. Creatinine Clearance 0 mL/min (70-130); Carbon Dioxide 21 mmol/L (22-29); Chloride 102 mmol/L (98-107); Estimated GFR-MDRD 34; Globulin 2.7 g/dL (2.4-3.5); Glucose 106 mg/dL (70-105); Potassium 5.2 mmol/L (3.5-5.1); Protein, Total 6.4 g/dL (6.0-8.3); Sodium 133 mmol/L (136-145)
[2017-11-18 14:13] LABS: #Basophils 0.1 thou/uL (0.0-0.2); #Eosinphils 0.2 thou/uL (0.0-0.7); #Lymphocytes 1.8 thou/uL (1.20-3.40); #Monocytes 0.6 thou/uL (0.11-0.59); %Basophils 0.7 % (0.0-1.0); %Eosinophils 1.8 % (0.0-10.0); %Lymphocytes 18.3 % (21.0-51.0); %Neutrophils 73.1 % (42.0-75.0); Hemoglobin 8.8 g/dL (12.0-16.0); Mean Corpuscular HGB CONC 31.1 g/dL (32.0-36.0); Mean Corpuscular Hemoglobin 22.9 pg (27.0-31.0); Mean Corpuscular Volume 73.6 fL (78.0-98.0); Mean Platelet Volume 8.2 fL (7.4-10.4); Platelet Count 314 thou/uL (130-400); RBC Distribution Width 16.2 % (11.5-14.5); Red Blood Cell (RBC) Count 3.83 mill/uL (4.20-5.40); White Blood Cell (WBC) Count 9.6 thou/uL (4.8-10.8)
--- NOTE | 2017-11-21 21:46 | EKG ---
Test Reason : HYPOTENSION Blood Pressure : / mmHG Vent. Rate : 070 BPM Atrial Rate : 070 BPM P-R Int : 170 ms QRS Dur : 072 ms QT Int : 400 ms P-R-T Axes : 030 142 025 degrees QTc Int : 432 ms Normal sinus rhythm Right axis deviation Low voltage QRS Cannot rule out Anterior infarct , age undetermined Abnormal ECG Confirmed by MARICHUY Vazquez, MOY ([id number]), videotape editor BEV LYMAN ([id number]) on 11/21/2017 9:46:30 PM Referred By: Confirmed By:MOY BENEDICT M.D.
== END 2017-11-18 14:56 | disposition home or self-care (01) ==
LOC: ERS 11:31
DX: T81.89XA Other complications of procedures, not elsewhere classified, initial encounter (principal); N17.9 Acute kidney failure, unspecified; E87.5 Hyperkalemia; I25.2 Old myocardial infarction; E11.9 Type 2 diabetes mellitus without complications; I10 Essential (primary) hypertension; J45.909 Unspecified asthma, uncomplicated; J44.9 Chronic obstructive pulmonary disease, unspecified; F41.9 Anxiety disorder, unspecified; F32.9 Major depressive disorder, single episode, unspecified; F17.210 Nicotine dependence, cigarettes, uncomplicated; Z79.82 Long term (current) use of aspirin; Z79.84 Long term (current) use of oral hypoglycemic drugs; Z79.899 Other long term (current) drug therapy
CPT/HCPCS: 12001; 71045; 80053; 82553; 83880; 84484; 85025; 93005; 96360; J2001